=== PATIENT | female | born 1940 | race Caucasian/White ===

== ENCOUNTER 2017-03-02 13:44 | Emergency (ER) | payer MEDICARE, BC ==
[2017-03-02 14:12] VITALS: BP 130/67
--- NOTE | 2017-03-02 14:50 | UC ---
Lower Extremity/Ankle HPI - HPI Summary HPI Summary: 76 YEAR OLD FEMALE PRESENTS WITH COMPLAINS OF SEVERE RIGHT LOWER EXTREMITY SWELLING/ERYTHEMA. SHE HAS A HISTORY OF DVT'S AND I WILL SEND HER TO THE ER. - History of Current Complaint Chief Complaint: UCLowerExtremity Stated Complaint: LEG COMPLAINT Time Seen by Provider: 03/02/17 14:47 - Allergies/Home Medications Allergies/Adverse Reactions: Allergies Allergy/AdvReac Type Severity Reaction Status Date / Time Benzocaine Allergy Rash Verified 03/02/17 15:44 Sulfa Drugs Allergy Rash Verified 03/02/17 15:44 "EYE DROP" FOR GLAUCOMA AdvReac BURNING Uncoded 03/02/17 15:44 PAIN PMH/Surg Hx/FS Hx/Imm Hx Previously Healthy: Yes - Surgical History Surgical History: Yes Surgery Procedure, Year, and Place: TUBAL LIGATION-1971. APPENDECTOMY-1976. PARTIAL HYSTERECTOMY- 1976. [facility]. 2006 2 LASIK SURGERIES FOR G[facility]UCOMA [facility]. 2 LASER SURGERY FOR GLAUCOMA 2007 [facility]. RIGHT TKR-2007 [facility]. PARTIAL LEFT TKR 2010 [facility]. BILAT CATARACT - 2010 [facility]. THYROIDECTOMY- 2010 [facility]. VARICOSE VEIN SURGERY RIGHT. 09/09 RIGHT TRABECULECTOMY [facility]. RIGHT ROTATOR CUFF 2012 [facility] [place] - Social History Alcohol Use: Rare Substance Use Type: None Smoking Status (MU): Never Smoked Tobacco Type: Cigarettes Length of Time of Smoking/Using Tobacco: 5 YRS Have You Smoked in the Last Year: No When Did the Patient Quit Smoking/Using Tobacco: 40 YRS AGO - Immunization History Most Recent Influenza Vaccination: unk Most Recent Tetanus Shot: pt unsure Most Recent Pneumonia Vaccination: 2009 Review of Systems Constitutional: Negative Skin: Other - RIGHT LOWER EXTREMITY SWELLING/ERYTHEMA/PAIN Eyes: Negative ENT: Negative Respiratory: Negative Cardiovascular: Negative Gastrointestinal: Negative Genitourinary: Negative Motor: Negative Neurovascular: Negative Musculoskeletal: Negative Neurological: Negative Psychological: Negative All Other Systems Reviewed And Are Negative: Yes Physical Exam Triage Information Reviewed: Yes Vital Signs: Initial Vital Signs Temp 37.3 C 03/02/17 14:08 Pulse 68 03/02/17 14:08 Resp 20 03/02/17 14:08 BP 130/67 03/02/17 14:08 Pulse Ox 98 03/02/17 14:08 Eye Exam: Normal ENT Exam: Normal Dental Exam: Normal Neck exam: Normal Neck: Positive: 1 Respiratory Exam: Normal Cardiovascular Exam: Normal Abdominal Exam: Normal Musculoskeletal: Positive: Other: - RIGHT LOWER EXTREMITY PAIN/SWELLING/ERYTHEMA Neurological Exam: Normal Psychological Exam: Normal Skin Exam: Normal Lower Extremity Course/Dx - Differential Dx/Diagnosis Differential Diagnosis/HQI/PQRI: DVT Provider Diagnoses: RIGHT LOWER EXTREMITY SWELLING/ERYTHEMA/PAIN Discharge - Discharge Plan Condition: Stable Disposition: HOME Patient Education Materials: Leg Pain (ED), Deep Venous Thrombosis (ED), Leg Edema (ED) Referrals: Ministerio Quinones MD [Primary Care Provider] - Additional Instructions: PLEASE GO TO ER TO RULE OUT DVT.
== END 2017-03-02 15:00 | disposition home or self-care (01) ==
LOC: UCEAST 13:44
DX: M79.89 Other specified soft tissue disorders (principal); M79.604 Pain in right leg; Z88.4 Allergy status to anesthetic agent; Z88.2 Allergy status to sulfonamides; Z87.891 Personal history of nicotine dependence
CPT/HCPCS: 99211; G0463

== ENCOUNTER 2017-03-02 15:28 | Emergency (ER) | payer MEDICARE, BC ==
[2017-03-02] MEDS ORDERED: Acetaminophen TAB* 325 MG PO ONE (17:09)
[2017-03-02] MEDS ORDERED: Clindamycin 600 MG IVPREMIX(* 600 MG/50 ML SDV IV ONE (17:10)
[2017-03-02] MEDS ORDERED: NS 0.9% 1000 ML* 1,000 ML IV SCH (17:15)
[2017-03-02 17:46] LABS: Urine Bilirubin Negative (Negative); Urine Glucose Negative (Negative); Urine Nitrite Negative (Negative)
--- NOTE | 2017-03-02 17:55 | RAD ---
HISTORY: Right leg swelling TECHNIQUE: Multiple transverse and longitudinal ultrasound images were obtained of the veins of the right lower extremity using grayscale, color Doppler, and spectral Doppler imaging with and without compression and with augmentation. FINDINGS: VEINS: The common femoral vein, deep femoral vein, femoral vein and popliteal vein are compressible throughout their course, with normal flow on color Doppler imaging and normal response to augmentation on spectral Doppler imaging. SOFT TISSUES: Grossly normal. No large popliteal fossa cyst was identified. IMPRESSION: No sonographic evidence of deep vein thrombosis.
[2017-03-02 18:22] LABS: Albumin 3.9 g/dL (3.2-5.2); BUN/Creatinine Ratio 15.3 (8-20); C Reactive Protein 22.38 mg/L (< 5.00); Calcium 10.4 mg/dL (8.6-10.3); EGFR Non-African American 44.3 (>60); Globulin 3.3 g/dL (2-4); Potassium 3.7 mmol/L (3.5-5.0); Total Bilirubin 0.4 mg/dL (0.2-1.0); Total Protein 7.2 g/dL (6.4-8.9)
[2017-03-02 19:21] LABS: Hematocrit 37 % (35-47); Hemoglobin 11.8 g/dl (12.0-16.0); Mean Corpuscular HGB Conc 32 g/dl (31-36); Mean Corpuscular Hemoglobin 31 pg (27-31); Mean Corpuscular Volume 97 fL (80-97); Mean Platelet Volume 9 um3 (7.4-10.4); Red Blood Count 3.82 10^6/ul (4.0-5.4); Red Cell Distribution Width 15 % (10.5-15)
[2017-03-02] MEDS ORDERED: Clindamycin CAP* 150 MG PO ONE (21:14)
--- NOTE | 2017-03-02 21:18 | ED ---
Hubert Galarza Benjamin, scribed for Carlitos Miller MD on 03/02/17 at 1721 . Skin Complaint - HPI Summary HPI Summary: 76yo female comes from with swollen, red right lower leg. Pt also reports pain in her calf. Pt has hx of bilateral knee repair, and some knee pain ever since, but denies any acute abnormal knee pain today. Pt is also on 10-day course of Keflex BID for a recent boil in her vaginal area. Last dose is tonight. Pt reports some chills but denies fever, SOB, CP, or abdominal pain. - History of Current Complaint Chief Complaint: EDExtremityLower Time Seen by Provider: 03/02/17 16:49 Stated Complaint: ANKLES SWELLING-[facility] Hx Obtained From: Patient Onset/Duration: Atraumatic, Still Present Timing: Constant Onset Severity: Moderate Current Severity: Moderate Pain Intensity: 5 Pain Scale Used: 0-10 Numeric Skin Location: Leg - RLE Character: Swelling, Pain, Redness Aggravating Symptom(s): Nothing Alleviating Symptom(s): Nothing Associated Signs & Symptoms: Chills - Allergy/Home Medications Allergies/Adverse Reactions: Allergies Allergy/AdvReac Type Severity Reaction Status Date / Time Benzocaine Allergy Rash Verified 03/02/17 15:44 Sulfa Drugs Allergy Rash Verified 03/02/17 15:44 "EYE DROP" FOR GLAUCOMA AdvReac BURNING Uncoded 03/02/17 15:44 PAIN PMH/Surg Hx/FS Hx/Imm Hx Endocrine/Hematology History: Reports: Hx Thyroid Disease - HYPO Denies: Hx Diabetes Cardiovascular History: Reports: Other Cardiovascular Problems/Disorders - HX DVT APPROX 20 YRS Denies: Hx Hypertension Comment Only: Hx Peripheral Vascular Disease - VARICOSE VEIN SURGERY IN THE PAST Respiratory History: Reports: Hx Asthma - HX OF Denies: Hx Chronic Obstructive Pulmonary Disease (COPD) GI History: Reports: Hx Gall Bladder Disease - pt is unsure- "maybe", Other GI Disorders - CONSTIPATION/DIARRHEA Denies: Hx Ulcer History: Reports: Other Problems/Disorders - BLADDER LESIONS Musculoskeletal History: Reports: Hx Arthritis, Other Musculoskeletal History - POSSIBLE DDD Sensory History: Reports: Hx Cataracts, Hx Contacts or Glasses - GLASSES, Hx Glaucoma - BILAT Denies: Hx Hearing Aid Opthamlomology History: Reports: Hx Cataracts, Hx Contacts or Glasses - GLASSES , Hx Glaucoma - BILAT Neurological History: Reports: Hx Headaches, Other Neuro Impairments/Disorders - falls, occassional slurred speech Psychiatric History: Reports: Hx Anxiety, Hx Depression - BIPOLAR - Cancer History Cancer Type, Location and Year: had breast biopsy - took tamoxifen for 5 years r /t this benign issue Hx Chemotherapy: No Hx Radiation Therapy: No - Surgical History Surgery Procedure, Year, and Place: TUBAL LIGATION-1971. APPENDECTOMY-1976. PARTIAL HYSTERECTOMY- 1976. [facility]. 2005 2 LASIK SURGERIES FOR GLAUCOMA [facility]. 2 LASER SURGERY FOR GLAUCOMA 2007 [facility]. RIGHT TKR-2007 [facility]. PARTIAL LEFT TKR 2010 [facility]. BILAT CATARACT - 2010 [facility]. THYROIDECTOMY- 2010 [facility]. VARICOSE VEIN SURGERY RIGHT. 09/09 RIGHT TRABECULECTOMY [facility]. RIGHT ROTATOR CUFF 2012 [facility] [place] Hx Anesthesia Reactions: No Infectious Disease History: No Infectious Disease History: Denies: Hx Clostridium Difficile, Hx Hepatitis, Hx Human Immunodeficiency Virus (HIV), Traveled Outside the US in Last 30 Days - Family History Known Family History: Positive: Other - breast CA - Social History Occupation: Retired Lives: Alone Alcohol Use: Rare Substance Use Type: Reports: None Smoking Status (MU): Never Smoked Tobacco Type: Cigarettes Length of Time of Smoking/Using Tobacco: 5 YRS Have You Smoked in the Last Year: No Review of Systems Positive: Chills Eyes: Negative ENT: Negative Cardiovascular: Negative Respiratory: Negative Gastrointestinal: Negative Genitourinary: Negative Positive: Myalgia - RLE, Edema - RKE Positive: Other - redness @RLE Neurological: Negative Psychological: Normal All Other Systems Reviewed And Are Negative: Yes Physical Exam Triage Information Reviewed: Yes Vital Signs On Initial Exam: Initial Vitals Temp Pulse Resp BP Pulse Ox 98.3 F 74 16 153/55 99 03/02/17 15:44 03/02/17 15:44 03/02/17 15:44 03/02/17 15:44 03/02/17 15:44 Vital Signs Reviewed: Yes Appearance: Positive: Well-Appearing, No Pain Distress, Well-Nourished Skin: Positive: Warm, Skin Color Reflects Adequate Perfusion, Dry, Erythema @ - RLE, Up to mid-calf, circumferential, Other - right knee: not erythematous, not hot to touch Head/Face: Positive: Normal Head/Face Inspection Eyes: Positive: EOMI, SIRENA, Conjunctiva Clear ENT: Positive: Normal ENT inspection, Hearing grossly normal Neck: Positive: Supple, Nontender Respiratory/Lung Sounds: Positive: Clear to Auscultation, Breath Sounds Present Cardiovascular: Positive: RRR Abdomen Description: Positive: Nontender, Soft Bowel Sounds: Positive: Present Musculoskeletal: Positive: Normal, Strength/ROM Intact - Knee ROM intact, Edema Right - Right lower leg. Negative: Edema Left Neurological: Positive: Sensory/Motor Intact, Alert, Oriented to Person Place, Time, CN Intact II-III Psychiatric: Positive: Affect/Mood Appropriate - [place] Coma Scale Coma Scale Total: 15 Diagnostics - Vital Signs Vital Signs Temp Pulse Resp BP Pulse Ox 03/02/17 16:20 97.8 F 76 18 135/57 96 03/02/17 15:44 98.3 F 74 16 153/55 99 - Laboratory Lab Results: Lab Results 03/02/17 03/02/17 03/02/17 Range/Units 17:35 18:00 18:00 WBC (3.5-10.8) 10^3/ul RBC (4.0-5.4) 10^6/ul Hgb (12.0-16.0) g/dl Hct (35-47) % MCV (80-97) fL MCH (27-31) pg MCHC (31-36) g/dl RDW (10.5-15) % Plt Count (150-450) 10^3/ul MPV (7.4-10.4) um3 Neut % (Auto) (38-83) % Lymph % (Auto) (25-47) % Z[place]ata % (Auto) (1-9) % Eos % (Auto) (0-6) % Baso % (Auto) (0-2) % Absolute Neuts (auto) (1.5-7.7) 10^3/ul Absolute Lymphs (auto) (1.0-4.8) 10^3/ul Absolute Monos (auto) (0-0.8) 10^3/ul Absolute Eos (auto) (0-0.6) 10^3/ul Absolute Basos (auto) (0-0.2) 10^3/ul Absolute Nucleated RBC 10^3/ul Nucleated RBC % INR (Anticoag Therapy) 0.92 (0.89-1.11) APTT 19.1 L (26.0-36.3) seconds Sodium 141 (133-145) mmol/L Potassium 3.7 (3.5-5.0) mmol/L Chloride 108 (101-111) mmol/L Carbon Dioxide 28 (22-32) mmol/L Anion Gap 5 (2-11) mmol/L BUN 18 (6-24) mg/dL Creatinine 1.18 H (0.51-0.95) mg/dL Est GFR ( Amer) 57.0 (>60) Est GFR (Non-Af Amer) 44.3 (>60) BUN/Creatinine Ratio 15.3 (8-20) Glucose 95 (70-100) mg/dL Lactic Acid (0.5-2.0) mmol/L Calcium 10.4 H (8.6-10.3) mg/dL Total Bilirubin 0.40 (0.2-1.0) mg/dL AST 18 (13-39) U/L ALT 18 (7-52) U/L Alkaline Phosphatase 60 (34-104) U/L C-Reactive Protein 22.38 H (< 5.00) mg/L B-Natriuretic Peptide ( - 100) pg/mL Total Protein 7.2 (6.4-8.9) g/dL Albumin 3.9 (3.2-5.2) g/dL Globulin 3.3 (2-4) g/dL Albumin/Globulin Ratio 1.2 (1-3) Urine Color Straw Urine Appearance Clear Urine pH 7.0 (5-9) Ur Specific [place] 1.005 L (1.010-1.030) Urine Protein Negative (Negative) Urine Ketones Negative (Negative) Urine Blood Negative (Negative) Urine Nitrate Negative (Negative) Urine Bilirubin Negative (Negative) Urine Urobilinogen Negative (Negative) Ur Leukocyte Esterase Negative (Negative) Urine Glucose Negative (Negative) Urine Ascorbic Acid * H (Negative) 03/02/17 03/02/17 03/02/17 Range/Units 19:11 19:11 19:11 WBC 8.0 (3.5-10.8) 10^3/ul RBC 3.82 L (4.0-5.4) 10^6/ul Hgb 11.8 L (12.0-16.0) g/dl Hct 37 (35-47) % MCV 97 (80-97) fL MCH 31 (27-31) pg MCHC 32 (31-36) g/dl RDW 15 (10.5-15) % Plt Count 233 (150-450) 10^3/ul MPV 9 (7.4-10.4) um3 Neut % (Auto) 65.8 (38-83) % Lymph % (Auto) 19.6 L (25-47) % Zapata % (Auto) 10.0 H (1-9) % Eos % (Auto) 3.7 (0-6) % Baso % (Auto) 0.9 (0-2) % Absolute Neuts (auto) 5.3 (1.5-7.7) 10^3/ul Absolute Lymphs (auto) 1.6 (1.0-4.8) 10^3/ul Absolute Monos (auto) 0.8 (0-0.8) 10^3/ul Absolute Eos (auto) 0.3 (0-0.6) 10^3/ul Absolute Basos (auto) 0.1 (0-0.2) 10^3/ul Absolute Nucleated RBC 0.01 10^3/ul Nucleated RBC % 0.1 INR (Anticoag Therapy) (0.89-1.11) APTT (26.0-36.3) seconds Sodium (133-145) mmol/L Potassium (3.5-5.0) mmol/L Chloride (101-111) mmol/L Carbon Dioxide (22-32) mmol/L Anion Gap (2-11) mmol/L BUN (6-24) mg/dL Creatinine (0.51-0.95) mg/dL Est GFR ( Amer) (>60) Est GFR (Non-Af Amer) (>60) BUN/Creatinine Ratio (8-20) Glucose (70-100) mg/dL Lactic Acid 1.1 (0.5-2.0) mmol/L Calcium (8.6-10.3) mg/dL Total Bilirubin (0.2-1.0) mg/dL AST (13-39) U/L ALT (7-52) U/L Alkaline Phosphatase (34-104) U/L C-Reactive Protein (< 5.00) mg/L B-Natriuretic Peptide 55 ( - 100) pg/mL Total Protein (6.4-8.9) g/dL Albumin (3.2-5.2) g/dL Globulin (2-4) g/dL Albumin/Globulin Ratio (1-3) Urine Color Urine Appearance Urine pH (5-9) Ur Specific [place] (1.010-1.030) Urine Protein (Negative) Urine Ketones (Negative) Urine Blood (Negative) Urine Nitrate (Negative) Urine Bilirubin (Negative) Urine Urobilinogen (Negative) Ur Leukocyte Esterase (Negative) Urine Glucose (Negative) Urine Ascorbic Acid (Negative) Result Diagrams: 03/02/17 19:11 03/02/17 18:00 Lab Statement: Any lab studies that have been ordered have been reviewed, and results considered in the medical decision making process. - Ultrasound No standard instances Ultrasound Interpretation: No Acute Changes Ultrasound Interpretation Completed By: Radiologist - Doppler: no DVT Course/Dx - Course Course Of Treatment: Reviewed pts medication and allergy lists. DISCUSSED RESULTS WITH PATIENT/. PATIENT WAS ON KEFLEX 500MG PO BID. DISCUSSED ADMISSION VERSES HOME TREATMENT WITH CLINDAMYCIN 300MG PO QID AND PMD F/U. PATIENT PREFERS HOME TREATMENT, WILL RETURN IF WORSE. - Diagnoses Provider Diagnoses: Cellulitis of leg, right Discharge - Discharge Plan Condition: Stable Disposition: HOME Prescriptions: Clindamycin Cap(NF) [Clindamycin Cap 300 mg Cap(NF)] 300 mg PO Q6H #38 cap Patient Education Materials: Cellulitis (ED) Referrals: Ministerio Quinones MD [Primary Care Provider] - Additional Instructions: FOLLOW UP WITH YOUR DOCTOR. RETURN TO THE EMERGENCY DEPARTMENT FOR ANY WORSENING OF YOUR CONDITION; FEVER, YOU FEEL ILL, SPREAD OF INFECTION OR QUESTIONS OR CONCERNS. The documentation as recorded by the [facility] accurately reflects the service I personally performed and the decisions made by me, Carlitos Miller MD.
[2017-03-02 21:48] VITALS: BP 118/55
== END 2017-03-02 21:54 | disposition home or self-care (01) ==
LOC: ED 15:28
DX: L03.115 Cellulitis of right lower limb (principal); M79.89 Other specified soft tissue disorders; R68.83 Chills (without fever)
CPT/HCPCS: 36415; 80053; 81003; 83605; 83880; 85025; 85610; 85730; 86140; 87040; 96374; 99283; A9270-GY

== ENCOUNTER 2018-03-03 09:40 | Day surgery (SDC) | payer MEDICARE, BC ==
[~2018-03-03 09:40] MED LIST: Buffered Lidocaine 0.9% SYRIN* 5 ML/SYR SYRINGE INTRADERM ONE; Dexamethasone IV* 4 MG/ML 1 ML (4 MG) IV SLOW PU ONE; Famotidine IV* 10 MG/ML 2 ML (20 mg) IV ONE
[2018-03-03] MEDS ORDERED: Famotidine IV* 10 MG/ML 2 ML (20 mg) ONE (10:00)
[2018-03-03] MEDS ORDERED: Dexamethasone IV* 4 MG/ML 1 ML (4 MG) ONE (10:00)
[2018-03-03] MEDS ORDERED: ceFAZolin 2 GM PREMIX (*) 2 GM/50 ML BAG IVPB ONE (10:00)
[2018-03-03] MEDS ORDERED: HYDROcodone/ACETAMIN 5-325 MG* 1 TAB PO PRN (12:29)
[2018-03-03] MEDS ORDERED: oxyCODONE TAB* 5 MG TAB PO PRN (12:29)
[2018-03-03] MEDS ORDERED: fentaNYL* 50 MCG/ML 2 ML VIAL (100 MCG VIAL) IV PRN (12:29)
[2018-03-03] MEDS ORDERED: DiMENhydriNATE IV* 50 MG/ML VIAL IV PUSH PRN (12:29)
[2018-03-03] MEDS ORDERED: Acetaminophen TAB* 325 MG PO PRN (12:29)
[2018-03-03] MEDS ORDERED: Naloxone* 0.4 MG/ML 1 ML VIAL IV PRN (12:29)
[2018-03-03] MEDS ORDERED: fentaNYL* 50 MCG/ML 2 ML VIAL (100 MCG VIAL) ONE (12:42)
[2018-03-03] MEDS ORDERED: Bupivacaine 0.5% PF 10 ML VIAL INJ ONE ×2 (12:42→13:25)
[2018-03-03] MEDS ORDERED: Midazolam* 1 MG/ML 2 ML VIAL (2 MG) ONE (12:42)
[2018-03-03] MEDS ORDERED: Propofol* 10 MG/ML 20 ML BTL IV PUSH ONE (12:43)
[2018-03-03] MEDS ORDERED: Lidocaine 2% PF * 5 ML VIAL ONE (12:43)
[2018-03-03 14:24] VITALS: BP 139/60
== END 2018-03-03 14:50 | disposition home or self-care (01) ==
LOC: OR 09:40
PROVIDERS: ATTEND Plastic Surgery
DX: D17.21 Benign lipomatous neoplasm of skin and subcutaneous tissue of right arm (principal); J45.909 Unspecified asthma, uncomplicated; E03.9 Hypothyroidism, unspecified; F31.9 Bipolar disorder, unspecified; Z86.718 Personal history of other venous thrombosis and embolism; Z87.891 Personal history of nicotine dependence
CPT/HCPCS: 88304; J0690; J1100; J2250; J2704; J3010

== ENCOUNTER 2019-03-30 21:00 | Emergency (ER) | payer MEDICARE, BC ==
--- NOTE | 2019-03-31 01:33 | ED ---
Adult Trauma - HPI Summary HPI Summary: Patient complains of mechanical fall tonight with subsequent head injury to posterior head and LEYVA when her head hit the concrete floor. Denies LOC, vision change, N/V, altered mental status, instability, any other pain, injury or symptoms. No anti-coag. - History of Current Complaint Chief Complaint: EDHeadInjury Stated Complaint: FALL AND HIT HEAD PER PT SIGNIFICANT OTHER Time Seen by Provider: 03/31/19 00:32 Hx Obtained From: Patient, Family/Housecleaner Mechanism of Injury: Fall Ambulatory at the Scene: Yes Loss of Consciousness: no loss of consciousness Onset of Pain: Immediate Onset Severity: Moderate Current Severity: Moderate Pain Intensity: 6 Pain Scale Used: 0-10 Numeric Location: Head Character: Dull Aggravating Factor(s): Nothing Alleviating Factor(s): Nothing Associated Signs & Symptoms: Positive: Negative - Allergy/Home Medications Allergies/Adverse Reactions: Allergies Allergy/AdvReac Type Severity Reaction Status Date / Time benzocaine Allergy Rash Verified 03/03/18 10:05 Sulfa (Sulfonamide Allergy Rash Verified 03/03/18 10:05 Antibiotics) "EYE DROP" FOR GLAUCOMA AdvReac BURNING Uncoded 03/03/18 10:05 PAIN Home Medications: Home Medications Mirabegron (NF) [Myrbetriq (NF)] 50 mg PO DAILY 03/31/19 [History Confirmed 01/11] PMH/Surg Hx/FS Hx/Imm Hx Endocrine/Hematology History: Reports: Hx Thyroid Disease - HYPO - HX OF THYROID NODULE EXCISION Denies: Hx Diabetes Cardiovascular History: Reports: Hx Peripheral Vascular Disease - VARICOSE VEIN SURGERY IN THE PAST, Other Cardiovascular Problems/Disorders - HX DVT APPROX 20 YRS Denies: Hx Hypertension Respiratory History: Reports: Hx Asthma - HX OF - NO INHALERS, Other Respiratory Problems/Disorders - OCCASIONAL WHEEZING WITH EXERTION Denies: Hx Chronic Obstructive Pulmonary Disease (COPD) GI History: Reports: Hx Gall Bladder Disease - pt is unsure- "maybe", Other GI Disorders - OCCASIONAL CONSTIPATION/DIARRHEA - RELATES TO DIET Denies: Hx Ulcer History: Reports: Other Problems/Disorders - HX OF BLADDER LESIONS Musculoskeletal History: Reports: Hx Arthritis - BILATERAL KNEE REPLACEMENTS, Other Musculoskeletal History - POSSIBLE DDD Sensory History: Reports: Hx Cataracts, Hx Contacts or Glasses - GLASSES, Hx Glaucoma Denies: Hx Hearing Aid Opthamlomology History: Reports: Hx Cataracts, Hx Contacts or Glasses - GLASSES , Hx Glaucoma Neurological History: Reports: Hx Headaches, Other Neuro Impairments/Disorders - falls, occassional slurred speech Psychiatric History: Reports: Hx Anxiety, Hx Depression - BIPOLAR - CURRENTLY TREATED WITH LITHIUM - Cancer History Cancer Type, Location and Year: had breast biopsy - took tamoxifen for 5 years r /t this benign issue Hx Chemotherapy: No Hx Radiation Therapy: No - Surgical History Surgery Procedure, Year, and Place: TUBAL LIGATION-1971. APPENDECTOMY-1976. PARTIAL HYSTERECTOMY- 1976. [facility]. 2005 2 LASIK SURGERIES FOR G[facility]COMA [facility]. REMOVAL OF THYROID NODULE, [facility]. CATARACT EXTRACTION BILATERAL EYES WITH IOL IMPLANTS, [facility]. VARICOSE VEINS SURGERY - 20 YEARS AGO, [facility]. BILATERAL KNEE REPLACEMENTS, [facility]. 2 LASER SURGERY FOR GLAUCOMA 2007 [facility]. RIGHT TKR-2007 [facility]. PARTIAL LEFT TKR 2010 [facility]. BILAT CATARACT - 2010 [facility]. THYROIDECTOMY - 2010 [facility]. VARICOSE VEIN SURGERY RIGHT. 09/09 RIGHT TRABECULECTOMY [facility]. RIGHT ROTATOR CUFF 2012 [facility] [place]. RECENT EXCISION OF CORN RIGHT FOOT Hx Anesthesia Reactions: Yes - VOMITING AFTER FIRST KNEE Infectious Disease History: No Infectious Disease History: Denies: Hx Clostridium Difficile, Hx Hepatitis, Hx Human Immunodeficiency Virus (HIV), Traveled Outside the [place] in Last 30 Days - Family History Known Family History: Positive: Other - breast [place] - Social History Alcohol Use: Occasionally Substance Use Type: Reports: None Smoking Status (MU): Former Smoker Type: Cigarettes Amount Used/How Often: 1 PPD FOR ABOUT 4 YEARS Length of Time of Smoking/Using Tobacco: 5 YRS Have You Smoked in the Last Year: No Review of Systems Constitutional: Negative Eyes: Negative ENT: Negative Cardiovascular: Negative Respiratory: Negative Gastrointestinal: Negative Genitourinary: Negative Musculoskeletal: Negative Skin: Negative Positive: Headache Psychological: Normal All Other Systems Reviewed And Are Negative: Yes Physical Exam - Summary Physical Exam Summary: Neuro exam normal. No trauma noted to mouth, face, head. Full range of motion of jaw or neck. No pain with Palpation of neck, spine, back, chest, abdomen. Patient moving all 4 extremities freely. Triage Information Reviewed: Yes Vital Signs On Initial Exam: Initial Vitals Temp Pulse Resp BP Pulse Ox 99.3 F 69 20 160/58 98 03/30/19 21:05 03/30/19 21:05 03/30/19 21:05 03/30/19 21:05 03/30/19 21:05 Vital Signs Reviewed: Yes Appearance: Positive: Well-Appearing Skin: Positive: Warm Head/Face: Positive: Normal Head/Face Inspection Eyes: Positive: Normal ENT: Positive: Normal ENT inspection Dental: Negative: Dental Fracture @, Bleeding Neck: Positive: Supple Respiratory/Lung Sounds: Positive: Clear to Auscultation Cardiovascular: Positive: Normal Abdomen Description: Positive: Nontender Musculoskeletal: Positive: Normal Neurological: Positive: Normal Psychiatric: Positive: Normal AVPU Assessment: Alert - [place] Coma Scale Best Eye Response: 4 - Spontaneous Best Motor Response: 6 - Obeys Commands Best Verbal Response: 5 - Oriented Coma Scale Total: 15 Diagnostics - Vital Signs Vital Signs Temp Pulse Resp BP Pulse Ox 03/30/19 23:01 98.6 F 136 20 178/71 93 03/30/19 21:05 99.3 F 69 20 160/58 98 - Laboratory Lab Statement: Any lab studies that have been ordered have been reviewed, and results considered in the medical decision making process. Adult Trauma Course/Dx - Course Course Of Treatment: Patient complains of mechanical fall tonight with subsequent head injury to posterior head and LEYVA when her head hit the concrete floor. Denies LOC, vision change, N/V, altered mental status, instability, any other pain, injury or symptoms. No anti-coag. Vital signs within normal limits. CT brain negative for acute process. - Diagnoses Provider Diagnoses: Fall, Head injury Discharge ED - Sign-Out/Discharge Documenting (check all that apply): Patient Departure Patient Received Moderate/Deep Sedation with Procedure: No - Discharge Plan Condition: Stable Disposition: HOME Prescriptions: Cephalexin CAP* [Keflex CAP*] 500 mg PO TID 7 Days #21 cap Patient Education Materials: Head Injury (ED) Referrals: Ministerio Quinones MD [Primary Care Provider] - Additional Instructions: Return to the ED for any new or worsening symptoms. - Billing Disposition and Condition Condition: STABLE Disposition: Home
[2019-03-31] MEDS ORDERED: Cephalexin CAP* 500 MG ONE (02:19)
[2019-03-31] MEDS ORDERED: Cephalexin CAP* 500 MG PO ONE (02:20)
[2019-03-31 02:26] VITALS: BP 131/67
== END 2019-03-31 02:24 | disposition home or self-care (01) ==
LOC: ED 21:00
DX: S09.90XA Unspecified injury of head, initial encounter (principal); W19.XXXA Unspecified fall, initial encounter; Y92.9 Unspecified place or not applicable; G31.9 Degenerative disease of nervous system, unspecified; F31.9 Bipolar disorder, unspecified; Z88.4 Allergy status to anesthetic agent; Z88.2 Allergy status to sulfonamides; Z88.8 Allergy status to other drugs, medicaments and biological substances; Z87.891 Personal history of nicotine dependence
CPT/HCPCS: 70450; 99283; A9270-GY

== ENCOUNTER 2019-04-16 11:28 | Inpatient (IN) | payer MEDICARE, BC ==
--- OUTSIDE RECORDS SUMMARY | 2019-04-16 11:54 | XMS REPORT | Continuity of Care Document ---
:1940 External Reference #:[id number] Author Name KASSIE Gracia Address [address] [place] [address] Care Team Providers Name Role Phone Ministerio Quinones - Family Medicine Care Team Information Staff Nurse Midwife [phone] [facility] - Physical Care Team Information Staff Nurse Midwife Therapist [facility] Care Team Information Staff Nurse Midwife Urology - Urology [facility] Urology Care Team Information Staff Nurse Midwife [phone] Problems Active Problems Provider Date Benign essential hypertension Ministerio Quinones M.D. Onset: 11/23/2005 Asthma without status asthmaticus Ministerio Quinones M.D. Onset: 11/23/2005 Hyperlipidemia Ministerio Quinones M.D. Onset: 11/23/2005 Edema Ministerio Quinones M.D. Onset: 11/23/2005 Bipolar disorder Ministerio Quinones M.D. Onset: 11/23/2005 Allergic condition Ministerio Quinones M.D. Onset: 11/23/2005 Arthropathy Ministerio Quinones M.D. Onset: 05/26/2006 Hypothyroidism Ministerio Quinones M.D. Onset: 12/03/2009 Hypercalcemia Ministerio Quinones M.D. Onset: 04/13/2011 Contusion of elbow Ministerio Quinones M.D. Onset: 04/13/2011 Contusion of knee Ministerio Quinones M.D. Onset: 04/13/2011 Malaise and fatigue Ministerio Quinones M.D. Onset: 07/13/2011 Disorder of shoulder Ministerio Quinones M.D. Onset: 07/05/2012 Epidermoid cyst Ministerio Quinones M.D. Onset: 03/06/2013 Female stress incontinence Ministerio Quinones M.D. Onset: 05/08/2013 Open wound of scalp with complication Ministerio Quinones M.D. Onset: 03/09/2014 Increased frequency of urination Ministerio Quinones M.D. Onset: 08/03/2014 Glaucoma associated with ocular disorder Ministerio Quinones M.D. Onset: 2014 Urinary tract infectious disease Ministerio Quinones M.D. Onset: 12/03/2014 Muscle weakness Ministerio Quinones M.D. Onset: 12/03/2014 Bipolar I disorder Ministerio Quinones M.D. Onset: 06/25/2015 Arthralgia of the pelvic region and thigh Ministerio Quinones M.D. Onset: 2014 Allergic rhinitis Ministerio Quinones M.D. Onset: 11/08/2015 Impacted cerumen Ministerio Quinones M.D. Onset: 05/04/2016 Urinary incontinence Ministerio Quinones M.D. Onset: 11/02/2016 Slow transit constipation Ministerio Quinones M.D. Onset: 11/02/2016 Contact dermatitis Ministerio Quinones M.D. Onset: 11/02/2016 Cellulitis of right lower limb Ministerio Quinones M.D. Onset: 03/09/2017 Localized superficial swelling of skin Ministerio Quinones M.D. Onset: 05/07/2017 Pain in limb Ministerio Quinones M.D. Onset: 11/08/2017 Mixed hyperlipidemia Ministerio Quinones M.D. Onset: 05/16/2018 Elevated blood-pressure reading without Ministerio Quinones M.D. Onset: 2018 diagnosis of hypertension Social History Type Date Description Comments Sex Unknown Tobacco Use Start: Unknown Nonsmoker Smoking Status Reviewed: 02/02/18 Nonsmoker ETOH Use Occasional Tobacco Use Start: Unknown End: Unknown Patient is a former smoker Allergies, Adverse Reactions, Alerts Active Allergies Reaction Severity Comments Date Sulfa Drugs Benzocaine Hay Fever 03/09/2017 Medications Active Medications SIG Qnty Indications Ordering Date Provider Amoxicillin 4 caps 1 hour 4caps Ministerio Quinones, 05/27/2018 500mg prior to M.D. Capsules procedure Fluocinonide apply to affected 60cc L30.8 Ministerio Quinones, 11/08/2017 0.05% areas of the M.D. Solution scalp every day as needed Levothyroxine Sodium Take One Tablet 90tabs Ministerio Quinones, 01/22/2012 By Mouth Every M.D. 88mcg Tablets Day [place] Carbonate ER Take One Tablet 180tabs Ministerio Quinones, 03/31/2011 By Mouth Twice A M.D. 450mg Tablets ER Day Fluticasone spray two sprays 16gm Ministerio Quinones, Propionate in each nostril M.D. 50mcg/Act every day for Suspension allergies Solifenacin Succinate 1 by mouth every Unknown day 10mg Tablets Cephalexin take one by mouth Unknown 500mg three times daily Capsules until gone. Myrbetriq 1 by mouth qd Unknown 50mg Tablets ER 24HR History Medications Myrbetriq 1 daily for 30tabs R32 Ministerio Quinones, 03/17/2019 - 25mg Tablets overactive bladder M.D. 03/17/2019 ER 24HR Myrbetriq R32 Ministerio Quinones, 03/17/2019 - 50mg Tablets M.D. 04/04/2019 ER 24HR Ciprofloxacin HCL take one by mouth 20tabs Ministerio Quinones, 12/29/2018 - 500mg twice daily M.D. 03/17/2019 Tablets Loratadine-D 12HR 1 twice a day as 30tabs J30.2 Ministerio Quinones, 2018 - needed for M.D. 04/04/2019 5-120mg Tablets ER allergies 12HR Medications Administered in Office Medication SIG Qnty Indications Ordering Provider Date H1N1 MDCR vaccine any route Ministerio Quinones M.D. 08/24/2009 Injection Immunizations CPT Code Status Date Vaccine Lot # [id number] Given 05/16/2018 Pneumococcal Conjugate Vacc-13 [id number] 91456 Given 04/15/2017 Influenza Vac, Quadriv[place], [place] [address] Given 06/18/2014 High-Dose, Influenza Virus Vacccine-fluzone 65 and older [id number] Given 05/08/2013 High-Dose, Influenza Virus Vacccine-fluzone 65 [id number] and older 48735 Given 05/02/2012 Zostivax [id number] 60124 Given 05/02/2012 High-Dose, Influenza Virus Vacccine-fluzone 65 [id number] and older [id number] Given 04/13/2011 Split Influenza Medicare: Fluzone [id number] 35554 Given 04/28/2010 Pneumococcal Immunization [id number] 80625 Given 04/28/2010 Tdap Tetanus, W Pertussis [id number] 40786 Given 04/28/2010 DO Not Use Split Influenza Virus Vaccine [id number] 79931 Given 06/26/2009 DO Not Use Split Influenza Virus Vaccine [id number] 83870 Given 06/02/2007 DO Not Use Split Influenza Virus Vaccine 40063 Given 05/26/2006 DO Not Use Split Influenza Virus Vaccine [id number] 09654 Given 06/04/2005 DO Not Use Split Influenza Virus Vaccine Vital Signs Date Vital Result Comment 04/05/2019 10:06am BP Systolic 132 mmHg BP Diastolic 60 mmHg Heart Rate 66 /min Body Temperature 98.1 F Respiratory Rate 16 /min Height 60.25 inches 5'0.25" Weight 203.12 lb BMI (Body Mass Index) 39.3 kg/m2 03/17/2019 11:06am BP Systolic 150 mmHg BP Diastolic 80 mmHg Heart Rate 68 /min Body Temperature 98.1 F Respiratory Rate 20 /min Weight 204.00 lb Results Test Date Facility Test Result H/L Range Note Laboratory test 03/17/2019 Mario Espinoza([facility]) TSH 1.59 mIU/L 0.50-6.00 finding Free T4 1.16 ng/dL 0.75-1.54 Comprehensive Metabolic 03/17/2019 Mario Espinoza([facility]) Sodium 147 mEq/L 134-149 Prof Potassium 4.6 mEq/L 3.6-5.5 Chloride 112 mEq/L 94-112 Carbon Dioxide 27 mEq/L 21-32 Glucose 93 mg/dL 70-105 BUN 20 mg/dL 6-26 Creatinine 1.1 mg/dL 0.6-1.4 BUN/Creat Ratio 18.2 CALC 8.0-36.0 Calcium 10.7 mg/dL High 8.6-10.2 1 Total Protein 7.1 g/dL 6.4-8.3 Albumin 4.6 g/dL 3.8-5.5 Globulin 2.5 g/dL 2.0-4.8 A/G Ratio 1.8 CALC 0.6-2.3 Alk. Phosphatase 74 U/L 30-110 Alt (SGPT) 20 U/L 7-35 Ast (Sgot) 18 U/L 5-34 Total Bilirubin 0.5 mg/dL 0.2-1.3 GFR Non- 51 ml/min/1.73m^ Low >=60 GFR >60 ml/min/1.73m^ >=60 Ua - Micro (Fma) 12/26/2018 [facility] Appearance clear (607)- - Color yellow Glucose, Urine (Fma/CMC/CTX) neg Bilirubin neg Ketones neg SP Grav 1.010 Blood neg PH 7.0 Protein neg Urobil 0.2 Nitrite pos Leukocytes (Fma/CMC/Centrex) mod Hyaline - /Lpf Granular - /Lpf WBC (Fma,Centrex) 10-15 RBC 0-1 Mucus (Fma/CBC/Centrex) - /Lpf Epith rare /Lpf Bacteria 3+ /Hpf Amorphous (Fma/CMC/Centrex) - /Lpf Crystals, Fluid (Fma/CMC/CTX) - Urine Culture And Sensitivities 12/26/2018 [facility] Urine Culture SEE RESULT BELOW 2 1 consistent w/ previous results 2 SEE RESULT BELOW Name: VERONA JACKSON : [address]: Ministerio Quinones MD Acct: [id number] Unit: [id number] AGE: 78 Location: [facility] Re12/26/18 SEX: F Status: REG REF SPEC: [id number] NICOLE: 12/26/18 [facility] DR: Ministerio Quinones MD REQ: [id number] RECD: 12/26/18 STATUS: COMP _ SOURCE: URINE SPDESC: ORDERED: Urine Culture COMMENTS: 1 chaudhari urine top [id number] Urine Source: Random Procedure Result Reported Site Urine Culture Final 12/28/18- 0847 ML Organism 1 KLEBSIELLA PNEUMONIAE Parks Count >100,000 (Many) CFU/ML 1. KLEBSIELLA PNEUMONIAE M.I.C. RX --------- ------ Ampicillin >=32 R Cefazolin <=4 S Cefepime <=1 S Ceftriaxone <=1 S Ciprofloxacin <=0.25 S Gentamicin <=1 S Levofloxacin <=0.12 S Meropenem <=0.25 S Nitrofurantoin <=16 S Tetracycline <=1 S Pipercillin/Tazobactam <=4 S Trimethoprim/Sulfamethoxazole <=20 S Amoxicillin/Clavulanic Acid <=2 S Aztreonam <=1 S Contact the Microbiology Department for any additional antibiotic reporting. * [facility] - Main Lab . END OF REPORT DEPARTMENT OF PATHOLOGY, [address] [place] [address] Sourav Holloway M.D. Director [facility] # [id number] Procedures Date Code Description Status 06/08/2018 [id number] Mammogram Completed 05/17/2017 [id number] Mammogram Completed 05/14/2017 [id number] Mammogram Completed 05/14/2016 [id number] Mammogram Completed 05/13/2015 [id number] Mammogram Completed 2014 [id number] Mammogram Completed 05/17/2014 [id number] Mammogram Completed 05/03/2013 [id number] Mammogram Completed 07/22/2011 [id number] Colonoscopy Completed 04/27/2011 [id number] Mammogram Completed 04/23/2010 [id number] Mammogram Completed 04/15/2010 [id number] Mammogram Completed 04/18/2009 [id number] Mammogram Completed 03/15/2008 [id number] Mammogram Completed 02/24/2007 [id number] Mammogram Completed 02/23/2006 [id number] Mammogram Completed Medical Devices Description No Information Available Encounters Type Date Location Provider Dx Diagnosis Office Visit 03/17/2019 Main Office Ministerio Quinones, E03.8 Other specified 11:00a M.D. hypothyroidism F31.70 Bipolar disord, currently in remis, most recent episode unsp R03.0 Elevated blood-pressure reading, w/o diagnosis of htn J30.2 Other seasonal allergic rhinitis R32 Unspecified urinary incontinence Office Visit 11/14/2018 11:20a Main Office Ministerio Quinones, E03.8 Other specified M.D. hypothyroidism F31.70 Bipolar disord, currently in remis, most recent episode unsp R32 Unspecified urinary incontinence L30.8 Other specified dermatitis J30.2 Other seasonal allergic rhinitis R03.0 Elevated blood-pressure reading, w/o diagnosis of htn R60.0 Localized edema Assessments Date Code Description Provider 04/05/2019 R29.6 Repeated falls Ketty Gonzalez, [facility] 04/05/2019 N39.42 Incontinence without sensory awareness Ketty Gonzalez, [facility] 03/17/2019 E03.8 Other specified hypothyroidism Ministerio Quinones M.D. 03/17/2019 F31.70 Bipolar disorder, currently in remission, Ministerio Quinones M.D. most recent episod 03/17/2019 R03.0 Elevated blood-pressure reading, without Ministerio Quinones M.D. diagnosis of hypert 03/17/2019 J30.2 Other seasonal allergic tiara Quionnes M.D. 03/17/2019 R32 Unspecified urinary incontinence Ministerio Quinones M.D. 12/26/2018 R32 Unspecified urinary incontinence Ministerio Quinones M.D. 11/14/2018 E03.8 Other specified hypothyroidism Ministerio Quinones M.D. 11/14/2018 F31.70 Bipolar disorder, currently in remission, Ministerio Quinones M.D. most recent episod 11/14/2018 R32 Unspecified urinary incontinence Ministerio Quinones M.D. 11/14/2018 L30.8 Other specified dermatitis Ministerio Quinones M.D. 11/14/2018 J30.2 Other seasonal allergic rhinitis Ministerio Quinones M.D. 11/14/2018 R03.0 Elevated blood-pressure reading, without Ministerio Quinones M.D. diagnosis of hypert 11/14/2018 R60.0 Localized edema Ministerio Quinones M.D. Plan of Treatment Future Appointment(s):09/18/2019 10:00 am - Ministerio Quinones M.D. at Main Qyskir4304/05/2019 - Ketty Gonzalez, FNPR29.6 Repeated pmyxjF64.42 Incontinence without sensory awarenessAllComments:Medication Management Patient Understands medications he 's taking? Yes No Are there Barriers to Adherence? Yes No Has the patient been asked about herbal supplements and therapies, andOTC meds? Yes No As always, we strongly encourage a healthy diet and making physical activity a part of your every day life. If you have questions about how or where to start, please contact the office. Functional Status Description No Information Available Mental Status Description No Information Available Referrals Refer to Reason for Referral Status Appt Date [facility] Urology evaluate and tx Scheduled 12/22/2018 [address] [phone]
--- OUTSIDE RECORDS SUMMARY | 2019-04-16 11:54 | XMS REPORT | Continuity of Care Document ---
:1940 External Reference #:[id number] Author Name Antonio Pabon M.D. Address [address] [place] [address] Care Team Providers Name Role Phone Ministerio Quinones M.D. - Family Medicine Care Team Information Wall Steamer Kaden Downey M.D. - Urology Care Team Information Wall Steamer [phone] Problems Active Problems Provider Date Asthma Onset: Seasonal allergic rhinitis Onset: Dependent edema Onset: Arthritis Onset: Bipolar affective disorder, current episode Onset: depression Hypothyroidism Onset: Primary open angle glaucoma Antonio Pabon M.D. Onset: 01/29/2015 Severe / Advanced / End Stage Glaucoma Antonio Pabon M.D. Onset: 2014 Pseudophakia Antonio Pabon M.D. Onset: 01/29/2015 Vertigo Onset: Bilateral primary open angle glaucoma Antonio Pabon M.D. Onset: 09/21/2016 Urinary incontinence Onset: Social History Type Date Description Comments Sex Unknown ETOH Use Rarely consumes alcohol Recreational Drug Use Never Used Drugs Tobacco Use Start: Unknown End: Patient is a former smoker Smoking Status Reviewed: 04/13/19 Patient is a former smoker Allergies, Adverse Reactions, Alerts Active Allergies Reaction Severity Comments Date Sulfa Antibiotics 10/22/2014 Benadryl 10/22/2014 Alphagan P 10/22/2014 Seasonal Moderate 04/13/2019 Medications Active Medications SIG Qnty Indications Ordering Provider Date Artificial Tears 1 drop both eye Antonio Pabon, 12/05/2015 1-0.3% nightly M.D. Solution Triamterene/Hydrochloro Unknown thiazide 37.5-25mg Capsules [place] Carbonate Unknown 150mg Capsules Levothyroxine Sodium Take One Tablet Unknown 88mcg By Mouth Every Tablets Day Fish Oil every day Unknown 500mg Capsules Nasal [place] 12 Hour Unknown 0.05% Solution Myrbetriq Take One Tablet Unknown 50mg Tablets ER By Mouth Every 24HR Day Cephalexin Take One Capsule Unknown 500mg Capsules By Mouth Three Times A Day Solifenacin Succinate Take One Tablet Unknown 10mg By Mouth Every Tablets Day Immunizations Description No Information Available Vital Signs Description No Information Available Results Description No Information Available Procedures Description No Information Available Medical Devices Description No Information Available Encounters Description No Information Available Assessments Date Code Description Provider 04/13/2019 H40.1133 Primary open-angle glaucoma, bilateral, Antonio Pabon M.D. severe stage 04/13/2019 Z96.1 Presence of intraocular lens Antonio Pabon M.D. Plan of Treatment 04/13/2019 - Antonio Pabon M.D.H40.1133 Primary open-angle glaucoma, bilateral, severe stageComments:Smoking can increase the risk of developing or worsening any eye related disease, as well as affect your overall health. If you are a smoker, we strongly recommend that you quit.If you are not a smoker, we strongly recommend that you do not start. Your glaucoma is stable at this time.Your eye pressure is within an acceptable range, and your testing does not show any further deterioration at this time. Please continue your treatment.Follow up:6 Month Follow Up DFE/IOP OCT ON You can expect to have your eyes dilated at your next visit. If Dr. Pabon orders any additional testing , it may require extra time. We recommend that you bring sunglasses, as dilation drops often make you light sensitive until they wear off. We always recommend you bring someone to drive you home if you are uncomfortable driving with your eyes dilated. If you have any questions before your next visit, feel free to call our office at .Z96.1 Presence of intraocular lensComments:The artificial lens implants in both eyes appear to be stable at this time. Your lens implant looks stable in your right eye at this time. You should be done, or almost done with your drops at thistime according to your surgical calendar. I have given you a prescription for glasses. If you haveany questions, please feel free to call our office at . Functional Status Description No Information Available Mental Status Description No Information Available Referrals Description No Information Available
[2019-04-16] MEDS ORDERED: NS 0.9% 1000 ML** 1,000 ML IV ONE ×2 (11:58→14:18)
[2019-04-16] MEDS ORDERED: Piperacillin/Tazobac ADVAN(*) 3.375 GM in NS 0.9% 100 ML* 100 ML IVPB ONE (12:00)
[2019-04-16 12:18] LABS: Urine Appearance Cloudy; Urine Bacteria 1+ (Absent); Urine Bilirubin Negative (Negative); Urine Blood 1+ (Negative); Urine Color Yellow; Urine Glucose Negative (Negative); Urine Ketones Negative (Negative); Urine Nitrite Positive (Negative); Urine Protein Negative (Negative); Urine Red Blood Cell 2+(6-10/hpf) (Absent); Urine Specific Gravity 1.004 (1.010-1.030); Urine Urobilinogen Negative (Negative); Urine White Blood Cell 3+(>20/hpf) (Absent)
[2019-04-16 12:33] LABS: Urine Benzodiazepine Screen None Detected (None Detect); Urine Opiates Screen None Detected (None Detect)
--- NOTE | 2019-04-16 12:42 | ED ---
HPI Febrile Illness - HPI Summary HPI Summary: This patient is a 78 year old F arriving via ambulance to [facility] accompanied by son and fiance with a chief complaint of a fever since 0700. Upon arrival patient had a rectal temperature of 104.7. Patient's son states that she has been having trouble keeping her train of thought for the "past week" via phone calls. Patients fiance states that this morning at 0700 he noticed patient's symptoms getting worse. The patient rates the pain 0/10 in severity. Symptoms aggravated by nothing. Symptoms alleviated by nothing. Patient reports syncope episodes and speech aphasia. - History of Current Complaint Chief Complaint: EDFever Time Seen by Provider: 04/16/19 11:46 Hx Obtained From: Family/Resist Coater Developer - Son and Fiance Onset/Duration: Started Weeks Ago, Worse Since - 0700 Timing: Constant Pain Intensity: 0 Pain Scale Used: 0-10 Numeric Aggravating Factors: Nothing Alleviating Factors: Nothing Associated Signs and Symptoms: Other: - Syncope episodes per Son - Allergy/Home Medications Allergies/Adverse Reactions: Allergies Allergy/AdvReac Type Severity Reaction Status Date / Time benzocaine Allergy Rash Verified 04/16/19 14:20 Sulfa (Sulfonamide Allergy Rash Verified 04/16/19 14:20 Antibiotics) "EYE DROP" FOR GLAUCOMA AdvReac BURNING Uncoded 04/16/19 14:20 PAIN Home Medications: Home Medications Solifenacin(NF) [Vesicare(NF)] 10 mg PO DAILY 04/16/19 [History Confirmed ] PMH/Surg Hx/FS Hx/Imm Hx Endocrine/Hematology History: Reports: Hx Thyroid Disease - HYPO - HX OF THYROID NODULE EXCISION Denies: Hx Diabetes Cardiovascular History: Reports: Hx Peripheral Vascular Disease - VARICOSE VEIN SURGERY IN THE PAST, Other Cardiovascular Problems/Disorders - HX DVT APPROX 20 YRS Denies: Hx Hypertension Respiratory History: Reports: Hx Asthma - HX OF - NO INHALERS, Other Respiratory Problems/Disorders - OCCASIONAL WHEEZING WITH EXERTION Denies: Hx Chronic Obstructive Pulmonary Disease (COPD) GI History: Reports: Hx Gall Bladder Disease - pt is unsure- "maybe", Other GI Disorders - OCCASIONAL CONSTIPATION/DIARRHEA - RELATES TO DIET Denies: Hx Ulcer History: Reports: Other Problems/Disorders - HX OF BLADDER LESIONS Musculoskeletal History: Reports: Hx Arthritis - BILATERAL KNEE REPLACEMENTS, Other Musculoskeletal History - POSSIBLE DDD Sensory History: Reports: Hx Cataracts, Hx Contacts or Glasses - GLASSES, Hx Glaucoma Denies: Hx Hearing Aid Opthamlomology History: Reports: Hx Cataracts, Hx Contacts or Glasses - GLASSES , Hx Glaucoma Neurological History: Reports: Hx Headaches, Other Neuro Impairments/Disorders - falls, occassional slurred speech Psychiatric History: Reports: Hx Anxiety, Hx Depression - BIPOLAR - CURRENTLY TREATED WITH LITHIUM - Cancer History Cancer Type, Location and Year: had breast biopsy - took tamoxifen for 5 years r /t this benign issue Hx Chemotherapy: No Hx Radiation Therapy: No - Surgical History Surgical History: Yes Surgery Procedure, Year, and Place: TUBAL LIGATION-1971. APPENDECTOMY-1976. PARTIAL HYSTERECTOMY- 1976. [facility]. 2005 2 LASIK SURGERIES FOR GLAUCOMA [facility]. REMOVAL OF THYROID NODULE, [facility]. CATARACT EXTRACTION BILATERAL EYES WITH IOL IMPLANTS, [facility]. VARICOSE VEINS SURGERY - 20 YEARS AGO, [facility]. BILATERAL KNEE REPLACEMENTS, [facility]. 2 LASER SURGERY FOR GLAUCOMA 2007 [facility]. RIGHT TKR-2007 [facility]. PARTIAL LEFT TKR 2010 [facility]. BILAT CATARACT - 2010 [facility]. THYROIDECTOMY - 2010 [facility]. VARICOSE VEIN SURGERY RIGHT. 09/09 RIGHT TRABECULECTOMY [facility]. RIGHT ROTATOR CUFF 2012 [facility]. RECENT EXCISION OF CORN RIGHT FOOT Hx Anesthesia Reactions: Yes - VOMITING AFTER FIRST KNEE Infectious Disease History: No Infectious Disease History: Denies: Hx Clostridium Difficile, Hx Hepatitis, Hx Human Immunodeficiency Virus (HIV), Traveled Outside the [place] in Last 30 Days - Family History Known Family History: Positive: Other - breast CA - Social History Alcohol Use: Occasionally Hx Substance Use: No Substance Use Type: Reports: None Hx Tobacco Use: Yes Smoking Status (MU): Former Smoker Type: Cigarettes Amount Used/How Often: 1 PPD FOR ABOUT 4 YEARS Length of Time of Smoking/Using Tobacco: 5 YRS Have You Smoked in the Last Year: No Review of Systems Positive: Fever - 104.7 Neurological: Other - Aphasia Positive: Weakness, Syncope All Other Systems Reviewed And Are Negative: Yes Physical Exam - Summary Physical Exam Summary: VITAL SIGNS: Reviewed. GENERAL: Obese FEMALE who is lying comfortable in the stretcher. Patient is not in any acute respiratory distress. HEAD AND FACE: No signs of trauma. No ecchymosis, hematomas or skull depressions. No sinus tenderness. EYES: PERRLA, EOMI x 2, No injected conjunctiva, no nystagmus. EARS: Hearing grossly intact. Ear canals and tympanic membranes are within normal limits. MOUTH: Oropharynx within normal limits. NECK: Supple, trachea is midline, no adenopathy, no JVD, no carotid bruit, no c- spine tenderness, neck with full ROM. CHEST: Symmetric, no tenderness at palpation. LUNGS: Decreased breath sounds bilaterally. No wheezing or crackles. CVS: Regular rate and rhythm, S1 and S2 present, no murmurs or gallops appreciated. ABDOMEN: Soft, non-tender. No signs of distention. No rebound, no guarding, and no masses palpated. Bowel sounds are normal. EXTREMITIES: FROM in all major joints, no edema, no cyanosis or clubbing. NEURO: Alert but not oriented and confused. No acute neurological deficits. Speech is normal and follows commands. SKIN: Dry and warm. Triage Information Reviewed: Yes Vital Signs On Initial Exam: Initial Vitals Temp Pulse Resp BP Pulse Ox 104.7 F 82 20 165/73 96 04/16/19 11:35 04/16/19 11:35 04/16/19 11:35 04/16/19 11:35 04/16/19 11:35 Vital Signs Reviewed: Yes Diagnostics - Vital Signs Vital Signs Temp Pulse Resp BP Pulse Ox 04/16/19 11:35 104.7 F 82 20 165/73 96 - Laboratory Lab Results: Lab Results 04/16/19 04/16/19 Range/Units 11:48 12:12 ABG pH 7.47 H (7.35-7.45) ABG pCO2 34 L (35-45) mmHg ABG pO2 71 L (80-100) mmHg ABG HCO3 26.0 (19-31) mmol/L ABG O2 Saturation 97.7 (94.0-98.0) % ABG Base Excess 1.5 (-2.0-2.0) mmol/L Urine Color Yellow Urine Appearance Cloudy Urine pH 7.0 (5-9) Ur Specific [place] 1.004 L (1.010-1.030) Urine Protein Negative (Negative) Urine Ketones Negative (Negative) Urine Blood 1+ A (Negative) Urine Nitrate Positive A (Negative) Urine Bilirubin Negative (Negative) Urine Urobilinogen Negative (Negative) Ur Leukocyte Esterase 3+ A (Negative) Urine WBC (Auto) 3+(>20/hpf) A (Absent) Urine RBC (Auto) 2+(6-10/hpf) A (Absent) Urine Bacteria 1+ A (Absent) Urine Glucose Negative (Negative) Result Diagrams: 04/16/19 12:50 04/16/19 12:50 Lab Statement: Any lab studies that have been ordered have been reviewed, and results considered in the medical decision making process. - Radiology Chest Xray Radiology Interpretation Completed By: Radiologist Summary of Radiographic Findings: Chest Xray reveals, per radiologist, IMPRESSION: 1. Hypoinflated lungs with no focal airspace opacification. 2. Left lower lobe atelectasis is likely. ED Physician has reviewed this report. - CT Brain CT CT Interpretation Completed By: Radiologist Summary of CT Findings: Brain CT Scan reveals, per radiologist, IMPRESSION: 1. No acute intracranial abnormality. 2. Mild cerebral volume loss. 3. Mild chronic small vessel disease is likely. ED Physician has reviewed this report. Course/Dx - Course Assessment/Plan: Patient is an 78-year-old female who presents to the emergency department with family members 3 ambulance with a chief complaint of fall, confusion, and acute altered mental status. Apparently the symptoms started this morning as per fianc. The patients son also reports that for the last couple months the patient has become more for her. The usual. ABG shows a pH of 7.4, PCO2 34, PO2 71, and O2 sat is 97.7. Urinalysis is positive for nitrates therefore positive UTI. Since the patient initially had a temperature 104.7, however the pulse rate is 82, respiratory is 20, O2 sat is 96 and the blood pressures 165/73 I did not give the patient IV fluids 30 ccs per KG. however, after blood cultures and urine sent I gave the patient Zosyn as a broad -spectrum antibiotic. Blood work without any significant amount except for sodium 150, chloride 119, creatinine 1.4, glucose 121, and the troponin 0.02. Head CT impression: No acute intracranial abnormality. Mild cerebral volume loss. Chronic small vessel ischemic changes. I discussed my physical exam and findings with Dr. Davis to the hospital services who accepted the patient for admission.. - Diagnoses Provider Diagnoses: UTI (urinary tract infection) Is Visit Related: No - Provider Notifications Discussed Care Of Patient With: Teodoro Davis - Hospitalist Time Discussed With Above Provider: 14:16 Instructed by Provider To: Other - Dr. Davis accepts patient for admission. Discharge ED - Sign-Out/Discharge Documenting (check all that apply): Patient Departure - admitted Patient Received Moderate/Deep Sedation with Procedure: No - Discharge Plan Condition: Stable Disposition: ADMITTED TO [facility] Referrals: Ministerio Quinones MD [Primary Care Provider] - - Attestation Statements Document Initiated by Scribe: Yes Documenting Scribe: Hodan Barrett Provider For Whom Scribe is Documenting (Include Credential): Dr. Reinier Gerber Scribe Attestation: Hodan Galarza , scribed for Dr. Reinier Gerber on 04/16/19 at 1425. Status of Scribe Document: Ready
[2019-04-16 13:10] LABS: ABS Lymphocytes 0.4 10^3/ul (1.0-4.8); ABS Monocytes 0.7 10^3/ul (0-0.8); ABS Neutrophils 9.1 10^3/ul (1.5-7.7); Hematocrit 42 % (35-47); Hemoglobin 13.5 g/dL (12.0-16.0); Mean Corpuscular HGB Conc 32 g/dL (31-36); Mean Corpuscular Hemoglobin 31 pg (27-31); Mean Corpuscular Volume 96 fL (80-97); Mean Platelet Volume 9.5 fL (7.4-10.4); Platelet Count 180 10^3/uL (150-450); Red Blood Count 4.34 10^6 /uL (3.70-4.87); Red Cell Distribution Width 16 % (10-15); White Blood Count 10.3 10^3/uL (3.5-10.8)
[2019-04-16 13:24] LABS: ALT 15 U/L (7-52); AST 15 U/L (13-39); Albumin 3.9 g/dL (3.2-5.2); Albumin/Globulin Ratio 1.3 (1-3); Alkaline Phosphatase 65 U/L (34-104); BUN/Creatinine Ratio 11.4 (8-20); Blood Urea Nitrogen 16 mg/dL (6-24); CO2 Carbon Dioxide 25 mmol/L (22-32); Calcium 10.3 mg/dL (8.6-10.3); Creatine Kinase 49 U/L (10-223); EGFR African American 43.8 (>60); EGFR Non-African American 36.2 (>60); Glucose 121 mg/dL (70-100); Magnesium 2.4 mg/dL (1.9-2.7); Potassium 3.9 mmol/L (3.5-5.0); Total Protein 6.9 g/dL (6.4-8.9)
[2019-04-16 13:25] LABS: Troponin I 0.02 ng/mL (<0.04)
[2019-04-16 13:27] LABS: Anion Gap 6 mmol/L (2-11); Chloride 119 mmol/L (101-111); Sodium 150 mmol/L (135-145)
[2019-04-16 13:48] LABS: Acetaminophen < 15 mcg/mL; Alcohol < 10 mg/dL (<10); Salicylate < 2.50 mg/dL (<30)
[2019-04-16 14:03] LABS: TSH (Thyroid Stimulating Horm) 0.37 mcIU/mL (0.34-5.60)
[2019-04-16 14:34] LABS: INR 1.18 (0.82-1.09)
[2019-04-16] MEDS ORDERED: Acetaminophen TAB* 325 MG PO ONE (15:50)
[2019-04-16] MEDS ORDERED: Acetaminophen TAB* 325 MG PO PRN (15:55)
[2019-04-16] MEDS ORDERED: NS 0.9% 1000 ML** 1,000 ML IV SCH (16:00)
[2019-04-16] MEDS: Enoxaparin(*) 40 MG/0.4 ML SYR SUBCUT SCH (16:30)
[2019-04-16] MEDS ORDERED: Zosyn per Pharmacy* NOTE FOLLOW UP SCH (17:00)
[2019-04-16] MEDS ORDERED: cefTRIAXone(*) 1 GM in NS 0.9% 50 ML* 50 ML IVPB SCH (17:00)
[2019-04-16] MEDS ORDERED: Aspirin 81 mg CHEW TAB* 81 MG TAB.CHEW PO ONE (17:03)
[2019-04-16] MEDS: ZOSYN 3.375 GM Q8H per EXTENDED INFUSION IVPB SCH ×2 (20:35)
--- NOTE | 2019-04-16 20:56 | HP ---
CC: Dr. Quinones * HISTORY AND PHYSICAL: DATE OF ADMISSION: 04/16/19 PRIMARY CARE PROVIDER: Dr. Quinones. ATTENDING PHYSICIAN WHILE IN THE HOSPITAL: Dr. Teodoro Davis * (dictated by Dolores Sandoval NP). CHIEF COMPLAINT: Confusion. HISTORY OF PRESENT ILLNESS: Ms. Ambriz is an 78-year-old female with a past medical history significant for bipolar, hypothyroidism, and chronic incontinence,who presented to the emergency room with complaints of weakness and confusion per the family and patient's fiance. Per the fiance, the patient woke up this morning, she came downstairs and presumed took her medications, the fiance then found her rocking back and forth on the couch, confused, mumbling and unable to understand her. He tried to lift her off the couch and she was unable to stay on due to weakness and he lowered her to the floor and called the patient's son and the EMS, and the patient was brought to the emergency room for further evaluation. Upon arrival to the emergency room, the patient was found to have a fever of 104.7. She was given IV fluids and routine lab work was drawn. She was given Zosyn IV for urinary tract infection. Due to her fever meeting sepsis criteria with underlying urinary tract infection, Hospital Medicine was asked to see and evaluate for admission. The son reports that the patient has had intermittent episodes of difficulty with understanding her speech times approximately 2 weeks. The fiance also reports that the patient does have difficulty with her memory and has been more forgetful over the past couple of weeks. He reports that they play cards daily and then yesterday when they went to play Kwanji, she reported she did not remember how to play the game, which was abnormal for her. PAST MEDICAL HISTORY: Significant for: 1. Bipolar. 2. Hypothyroid. 3. Chronic incontinence. PAST SURGICAL HISTORY: 1. Parathyroidectomy. 2. Hysterectomy. 3. Cholecystectomy. 4. Bilateral knee replacements. 5. Breast lumpectomy. 6. Tubal ligation. 7. Eye surgery. HOME MEDICATIONS: Include: 1. VESIcare 10 mg p.o. daily. 2. [place]-3. 3. Myrbetriq 50 mg p.o. daily. 4. [place] 450 mg p.o. b.i.d. 5. Nasal spray. 6. Levothyroxine 88 mcg p.o. daily. ALLERGIES: BENZOCAINE and SULFA. FAMILY HISTORY: The father developed congestive heart failure at the age of 95 , no reported history of diabetes. Sister with breast cancer. SOCIAL HISTORY: The patient quit smoking over 50 years ago. Denies any alcohol or illicit drug use. She currently lives with her fiance. She walks with a walker. Surrogate decision maker in the event she is unable to make her own decisions is her daughter, Lanny, she is a full code. REVIEW OF SYSTEMS: Per the fiance/family, no reported fevers, but the patient did present with a fever. No unintended weight. The patient reports no when asked if she has chest pain. She denies cough, hemoptysis, or shortness of breath. She denies any nausea vomiting. She does report some lower abdominal pain. She denies any pain with urination, weakness on one side, difficulty swallowing, joint or muscle aches, rashes, lesions or open sores. Denies any psychosis or anxiety. PHYSICAL EXAMINATION GENERAL: At this time, Ms. Ambriz is an 78-year-old female. She is resting on the stretcher in the emergency room. She is confused. Her speech is garbled when asked questions, but clear if asked yes and no questions. VITAL SIGNS: Temperature 101.2, blood pressure 137/57, heart rate 75, respirations are 24, O2 saturation 96%. HEENT: Head is atraumatic and normocephalic. Eyes: EOMs are anicteric. Sclerae are anicteric and not pale. Oral mucosa appeared to be moist. NECK: Supple. LUNGS: Clear to auscultation bilaterally. No wheezes, rales or rhonchi. CARDIAC: S1 and S2. Regular rate and rhythm. No murmurs, rubs or gallops. ABDOMEN: Soft, she does have some suprapubic right lower abdomen tenderness to palpation. NEUROLOGIC: She is awake. She is alert. Her speech is garbled. She is able to answer yes or no questions appropriately. She is able to follow commands. Hand supervisor dehydrogenation are equal. Smile is equal. There is no facial asymmetry. Tongue is midline. SKIN: Intact. She does have mild erythema noted to her right lower leg. DIAGNOSTIC STUDIES/LAB DATA: WBCs are 10.3, RBCs 4.34, hemoglobin 13.5, hematocrit 42, platelet count 180. INR is 1.18. Blood gas; pH was 7.47, pCO2 of 34, pO2 was 71. Sodium 150, potassium 3.9, chloride 119, carbon dioxide is 125, anion gap was 6, BUN 16, creatinine 1.40, glucose is 121, lactic acid 1.7, calcium 10.3, magnesium 2.4. ASTs are 15, ALTs are 15, alkaline phosphatase is 65. TSH was 0.37. Urine; pH was 7.0, specific gravity 1.004, urine protein and ketones were negative, urine blood was +1, nitrites were positive, bilirubin was negative, urobilinogen was negative, leukocyte esterase was 3+, wbc's were 2+, rbc's were 2+, bacteria was 1+. Toxicology; salicylate was less than 2.50, urine tox was negative, acetaminophen less than 15, lithium was 0.80 and serum alcohol was less than 10. She had a CT of the brain, radiologist impression: No acute intracranial abnormality, mild cerebral volume loss, mild chronic small vessel disease is likely. She had an electrocardiogram, which showed sinus rhythm at a rate of 80. She had a chest x-ray, which showed hypoinflated lungs with no focal airspace opacification, left lower lobe atelectasis is likely. ASSESSMENT AND PLAN: Ms. Ambriz is an 78-year-old female with past medical history significant for bipolar, hypothyroidism and chronic incontinence, who presented to the emergency room with complaint of weakness and confusion and found to have urine meeting sepsis criteria with urinary tract infection. She will be admitted inpatient for: 1. Sepsis. The patient does meet a sepsis criteria with temperature of 104.7 and tachypnea of 24, suspect urinary tract infection. She did receive 2 L of normal saline in the emergency room. I will continue normal saline at 100 cc per hour. She did receive Zosyn 3.375 g. We will continue her on Zosyn IV as per pharmacy protocol. The patient does have mild elevation in her creatinine of 1.40. If her creatinine does not improve with hydration, I would recommend renal ultrasound. 2. Confusion. The patient does have confusion. She did present with a fever of 104.7. I suspect that her confusion is related to underlying infection and fever. The patient did have a CT of the brain in the emergency room that showed no acute intracranial abnormality. Family does report that she has had intermittent garbled speech on and off for 2 weeks. If her symptoms do not improve, I would recommend an MRI of the brain and a consultation to Neurology for further recommendations. I suspect this could also be related to toxic metabolic encephalopathy related to her underlying infection . I will start her on a baby aspirin as the patient does have garbled speech. If this does not clear with decreasing her fever and IV antibiotics, this could be related to transient ischemic attack versus cerebrovascular accident, I will also get a lipid profile. 3. Hypothyroidism. She should continue on levothyroxine as previously prescribed. 4. Bipolar. She should continue on lithium 450 mg p.o. b.i.d. 5. FEN. She could have a regular diet. 6. Code status. She is a full code. 7. DVT prophylaxis. I will place her on Lovenox subcu. TIME SPENT: Time spent on this admission was 60 minutes, greater than half the time was spent at the bedside reviewing the events leading thus far to hospitalization, performing my physical exam and reviewing my plan of care. I have discussed this with Dr. Abiel Guerrier, he is in agreement with my plan. DOLORES SANDOVAL, MOIZ [id number]/[facility] #: [id number] DANYELLE
[2019-04-16] MEDS: Lithium Carbonate ER* 450 MG TAB.ER PO SCH (21:44)
[2019-04-17] MEDS ORDERED: Piperacillin/Tazobac ADVAN(*) 3.375 GM in NS 0.9% 100 ML* 100 ML IVPB SCH (04:30)
[2019-04-17] MEDS: ZOSYN 3.375 GM Q8H per EXTENDED INFUSION IVPB SCH ×2 (05:06)
[2019-04-17] MEDS: Levothyroxine TAB* 88 MCG TAB PO SCH (06:26)
[2019-04-17 06:36] LABS: ABS Lymphocytes 0.9 10^3/ul (1.0-4.8); ABS Monocytes 0.6 10^3/ul (0-0.8); ABS Neutrophils 6.1 10^3/ul (1.5-7.7); Eosinophil % 0.5 %; Hematocrit 33 % (35-47); Hemoglobin 10.8 g/dL (12.0-16.0); Lymphocyte % 11.6 %; Mean Corpuscular HGB Conc 33 g/dL (31-36); Mean Corpuscular Hemoglobin 31 pg (27-31); Mean Corpuscular Volume 96 fL (80-97); Mean Platelet Volume 9.3 fL (7.4-10.4); Platelet Count 149 10^3/uL (150-450); Red Blood Count 3.45 10^6 /uL (3.70-4.87); Red Cell Distribution Width 16 % (10-15); White Blood Count 7.7 10^3/uL (3.5-10.8)
[2019-04-17 06:55] LABS: Calcium 9.1 mg/dL (8.6-10.3); EGFR African American 46.4 (>60); EGFR Non-African American 38.4 (>60); HDL Cholesterol 29.4 mg/dL; Potassium 3.7 mmol/L (3.5-5.0)
[2019-04-17] MEDS ORDERED: NS 0.9% 1000 ML** 1,000 ML IV SCH (08:30)
[2019-04-17] MEDS ORDERED: Lactated Ringers 1000 ML Bag* 1,000 ML IV SCH (09:00)
[2019-04-17] MEDS ORDERED: Aspirin 81 mg CHEW TAB* 81 MG TAB.CHEW PO SCH (09:00)
[2019-04-17] MEDS: Lithium Carbonate ER* 450 MG TAB.ER PO SCH ×2 (10:21→20:27)
[2019-04-17] MEDS: Nystatin TOP POWDER* 15 GM BTL TOPICAL SCH ×3 (10:24→20:28)
--- NOTE | 2019-04-17 12:47 | PN ---
Subjective Date of Service: 04/17/19 Interval History: Patient confused at times, overall answering questions appropriately. Patient's daughter tells me her confusion is far improved from yesterday. Denies fever/chills today, chest pain, abd pain, difficulty breathing, dysuria. She and her family tell me the loss of left peripheral vision I'm finding on exam is new. Objective Active Medications: Acetaminophen (Tylenol Tab*) 650 mg PO Q4H PRN PRN Reason: MILD PAIN or TEMP > 100.4 Last Admin: 04/17/19 02:58 Dose: 650 mg Aspirin (Aspirin 81 Mg Chew Tab*) 81 mg PO DAILY [facility] Last Admin: 04/17/19 10:22 Dose: 81 mg Enoxaparin Sodium (Lovenox(*)) 40 mg SUBCUT Q24H [facility] Last Admin: 04/16/19 16:30 Dose: 40 mg Ceftriaxone Sodium 1 gm/ (Sodium Chloride) 50 mls @ 100 mls/hr IVPB Q24H [facility] Sodium Chloride (Ns 0.9% 1000 Ml) 1,000 mls @ 100 mls/hr IV PER RATE [facility] Levothyroxine Sodium (Synthroid Tab*) 88 mcg PO 0600 [facility] Last Admin: 04/17/19 06:26 Dose: 88 mcg [place] Carbonate ([place] Carbonate Er Tab*) 450 mg PO BID [facility] Last Admin: 04/17/19 10:21 Dose: 450 mg Nystatin (Nystatin Top Powder*) 1 applic TOPICAL TID [facility] Last Admin: 04/17/19 10:24 Dose: 1 applic Vital Signs - 8 hr 04/17/19 04/17/19 04/17/19 07:00 11:00 12:06 Temperature 97.8 F 98.2 F 98.2 F Pulse Rate 58 64 64 Respiratory 16 16 16 Rate Blood Pressure 109/55 96/41 119/58 (mmHg) O2 Sat by Pulse 98 96 96 Oximetry Oxygen Devices in Use Now: None Appearance: Obese, elderly white female, laying upright, appearing in NAD Eyes: No Scleral Icterus, PERRLA, - - left hemianopsia; right side of visual littlejohn intact Ears/Nose/Mouth/Throat: Mucous Membranes Moist Neck: NL Appearance and Movements; NL JVP Respiratory: Symmetrical Chest Expansion and Respiratory Effort, Clear to Auscultation Cardiovascular: NL Sounds; No Murmurs; No JVD, RRR Abdominal: - - abd soft, nontender, nondistended; no suprapubic tenderness Extremities: No Edema, No Clubbing, Cyanosis Skin: No Rash or Ulcers Neurological: NL Sensation, - - 5/5 strength in all extremities; alert and oriented to self and time but not location; speech is clear, face is symmetrical Result Diagrams: 04/17/19 06:25 04/17/19 06:25 Additional Lab and Data: Lab Results 04/16/19 04/16/19 Range/Units 11:48 12:12 ABG pH 7.47 H (7.35-7.45) ABG pCO2 34 L (35-45) mmHg ABG pO2 71 L (80-100) mmHg ABG HCO3 26.0 (19-31) mmol/L ABG O2 Saturation 97.7 (94.0-98.0) % ABG Base Excess 1.5 (-2.0-2.0) mmol/L Urine Color Yellow Urine Appearance Cloudy Urine pH 7.0 (5-9) Ur Specific [place] 1.004 L (1.010-1.030) Urine Protein Negative (Negative) Urine Ketones Negative (Negative) Urine Blood 1+ A (Negative) Urine Nitrate Positive A (Negative) Urine Bilirubin Negative (Negative) Urine Urobilinogen Negative (Negative) Ur Leukocyte Esterase 3+ A (Negative) Urine WBC (Auto) 3+(>20/hpf) A (Absent) Urine RBC (Auto) 2+(6-10/hpf) A (Absent) Urine Bacteria 1+ A (Absent) Urine Glucose Negative (Negative) Assess/Plan/Problems-Billing Assessment: 78 yo female with PMHx bipolar disorder, hypothyroidism, and incontinence presents with confusion and a fever. - Patient Problems (1) Altered mental status Current Visit: Yes Status: Acute Code(s): R41.82 - ALTERED MENTAL STATUS, UNSPECIFIED SNOMED Code(s): 698447820 Comment: -suspect metabolic encephalopathy 2/2 UTI, however I do have concern for CVA given new left hemianopsia on exam and slurred/garbled speech reported yesterday. Speech is clear today. -lithium level and TSH wnl -CT brain negative -ordered MRI brain w/o contrast to r/o CVA -Neurology consulted. LDL<70 and HA1c <6.5. Patient was started on aspirin yesterday. Appreciate further neurology input. (2) Sepsis Current Visit: Yes Status: Acute Comment: -secondary to UTI, see further below -signs of sepsis resolved. Without fever thus far today and RR and HR wnl. No leukocytosis at admission -blood culture no growth to date (3) UTI (urinary tract infection) Current Visit: Yes Status: Acute Comment: -urine culture today demonstrating pseudomonas aeruginosa -initially changed patient's zosyn to ceftriaxone this morning, now changing to cefepime given culture -awaiting S&S -afebrile thus far today but not for a full 24 hours -no leukocytosis. Signs of sepsis resolved (4) MYRIAM (acute kidney injury) Current Visit: Yes Status: Acute Code(s): N17.9 - ACUTE KIDNEY FAILURE, UNSPECIFIED SNOMED Code(s): 69171102 Comment: -suspect prerenal in setting of sepsis -improving with IVF -continue IVF, changing NS to LR given hypernatremia (5) Bipolar disorder Current Visit: Yes Status: Acute Code(s): F31.9 - BIPOLAR DISORDER, UNSPECIFIED SNOMED Code(s): 00379937 Comment: -continue lithium -lithium level wnl at admission (6) Hypothyroidism Current Visit: Yes Status: Acute Code(s): E03.9 - HYPOTHYROIDISM, UNSPECIFIED SNOMED Code(s): 82210915 Comment: -continue synthroid -TSH wnl (7) DVT prophylaxis Current Visit: Yes Status: Acute Code(s): Z29.9 - ENCOUNTER FOR PROPHYLACTIC MEASURES, UNSPECIFIED SNOMED Code(s): 935503472 (8) Full code status Current Visit: Yes Status: Acute Code(s): Z78.9 - OTHER SPECIFIED HEALTH STATUS SNOMED Code(s): 532770193 Status and Disposition: Patient's family brings up social concerns regarding patient's home life with her boyfriend. SW involved. PT recommending VINICIO at discharge. Remains inpatient for further workup and will d/c when medically stable.
[2019-04-17] MEDS: Cefepime 2 GM in Dextrose(*) 2 GM/50 ML BAG IV SCH (15:44)
[2019-04-17] MEDS: Enoxaparin(*) 40 MG/0.4 ML SYR SUBCUT SCH (16:54)
[2019-04-17] MEDS: Lactated Ringers 1000 ML Bag* 1,000 ML IV SCH (16:55)
[2019-04-17] MEDS ORDERED: cefTRIAXone(*) 1 GM in NS 0.9% 50 ML* 50 ML IVPB SCH (18:00)
--- NOTE | 2019-04-17 18:49 | CONS ---
NEUROLOGY CONSULTATION: DATE OF CONSULT: 04/17/19 REFERRING PROVIDER: IRAIDA Freeman PRIMARY CARE PHYSICIAN: Dr. Quinones. LOCATION: She is an inpatient in room 416. CHIEF COMPLAINT: Delirium, change in vision. HISTORY OF PRESENT ILLNESS: Verona Ambriz is an 78-year-old woman who was admitted yesterday with urosepsis. She was quite delirious and today that is much improved. Her daughter and granddaughter are present. They agree that she is much better, but still is prone to confusion and word finding problems. She was examined by Maggie Del Rio today and noted to have a left hemianopia. It is not clear from the notes whether it is homonymous or not. Ms. Ambriz has not noticed any recent change in her vision. She does have a history of glaucoma and has had multiple procedures done in the right eye. She said she just had a checkup with Dr. Pabon recently and that her eye pressures were in good shape. She had previously taken drops for them, but they irritated her eyes and so she just had some procedures and is no longer on drops. She denies any headache. There is no history of stroke or transient ischemic attacks. PAST MEDICAL HISTORY: Notable for bipolar disorder, glaucoma, hypothyroidism, parathyroid surgery, bilateral knee replacements, multiple eye surgeries, breast lumpectomy. MEDICATIONS: At home consisted of: 1. [place] 450 mg p.o. b.i.d. 2. Levothyroxine 88 mcg p.o. daily. 3. Myrbetriq 50 mg p.o. daily. 4. VESIcare 10 mg p.o. daily. ALLERGIES: She is allergic to SULFA drugs and BENZOCAINE. REVIEW OF SYSTEMS: Notable for a fall at a senior event about a week ago. She hit her head her daughter and was evaluated in the emergency room and had a CT of the brain, which was interpreted as normal. She denies double vision. She denies headache. There is no history of cardiac, pulmonary, GI, or other renal disease. PHYSICAL EXAMINATION: She is well nourished and well hydrated. Temperature is 98.4, blood pressure 120/54, heart rate is in the 60s, respiratory rate is 16, and oxygen saturation is 96% on room air. Neurologic Exam: Pupils react equally from about 2.5 to 2 mm. Eye movements are normal. Funduscopic exam reveals pale discs bilaterally. Visual littlejohn are difficult due to impersistence of gaze, but she seems to have ability to sense finger movement in all 4 quadrants out the left eye and to a more limited extent with some right and left lower constriction of vision out of the right eye. Facial musculature is symmetric. Speech is clear. There is no asterixis. I did not attempt to ambulate her. She is able to provide some history, but clearly has poor memory, attention, and concentration. She has word finding problems and also comes up with paraphasic errors. IMPRESSION AND PLAN: My impression is that any visual changes are probably from her glaucoma. I do not see anything to suggest acute stroke. Her delirium is improving. An MRI of the brain has been ordered and I think that is reasonable. If it is negative, then I would just continue to treat her urosepsis and supportive care for her delirium. [id number]/CPS #: [id number] MTDLevi
[2019-04-18] MEDS: Cefepime 2 GM in Dextrose(*) 2 GM/50 ML BAG IV SCH ×2 (02:44→15:22)
[2019-04-18] MEDS: Levothyroxine TAB* 88 MCG TAB PO SCH (07:02)
[2019-04-18 09:31] LABS: ABS Eosinophils 0.2 10^3/ul (0-0.6); ABS Lymphocytes 1.2 10^3/ul (1.0-4.8); ABS Monocytes 0.5 10^3/ul (0-0.8); ABS Neutrophils 3.5 10^3/ul (1.5-7.7); Eosinophil % 3.4 %; Hematocrit 39 % (35-47); Hemoglobin 12.1 g/dL (12.0-16.0); Lymphocyte % 21.4 %; Mean Corpuscular HGB Conc 31 g/dL (31-36); Mean Corpuscular Hemoglobin 31 pg (27-31); Mean Corpuscular Volume 99 fL (80-97); Mean Platelet Volume 9.6 fL (7.4-10.4); Platelet Count 159 10^3/uL (150-450); Red Cell Distribution Width 17 % (10-15); White Blood Count 5.5 10^3/uL (3.5-10.8)
--- NOTE | 2019-04-18 09:47 | PN ---
Subjective Date of Service: 04/18/19 Interval History: Patient's confusion is still improving. Patient answers questions completely appropriately today and is fully oriented. Family tells me she was trying to get out of bed without assistance. Denies fever/chills, chest pain, dysuria, difficulty breathing, nausea/vomiting. Complains of intermittent abdominal pain but she has not had a BM. Objective Active Medications: Acetaminophen (Tylenol Tab*) 650 mg PO Q4H PRN PRN Reason: MILD PAIN or TEMP > 100.4 Last Admin: 04/17/19 02:58 Dose: 650 mg Enoxaparin Sodium (Lovenox(*)) 40 mg SUBCUT Q24H [facility] Last Admin: 04/17/19 16:54 Dose: 40 mg Cefepime HCl (Maxipime 2 Gm In Dextrose Duplex (*)) 2 gm in 50 mls @ 100 mls/ hr IV Q12H [facility] Last Admin: 04/18/19 02:44 Dose: 100 mls/hr Lactated Ringer's (Lactated Ringers 1000 Ml Bag*) 1,000 mls @ 100 mls/hr IV PER RATE [facility] Last Admin: 04/17/19 16:55 Dose: 100 mls/hr Levothyroxine Sodium (Synthroid Tab*) 88 mcg PO 0600 [facility] Last Admin: 04/18/19 07:02 Dose: 88 mcg [place] Carbonate ([place] Carbonate Er Tab*) 450 mg PO BID [facility] Last Admin: 04/17/19 20:27 Dose: 450 mg Nystatin (Nystatin Top Powder*) 1 applic TOPICAL TID [facility] Last Admin: 04/17/19 20:28 Dose: 1 applic Vital Signs - 8 hr 04/18/19 04/18/19 03:07 07:00 Temperature 97.9 F 97.4 F Pulse Rate 61 56 Respiratory 18 16 Rate Blood Pressure 132/61 139/66 (mmHg) O2 Sat by Pulse 96 96 Oximetry Oxygen Devices in Use Now: None Appearance: Obese, elderly, white female, laying upright in bed, in NAD Eyes: No Scleral Icterus, PERRLA Ears/Nose/Mouth/Throat: Mucous Membranes Moist Neck: NL Appearance and Movements; NL JVP Respiratory: Symmetrical Chest Expansion and Respiratory Effort, Clear to Auscultation Cardiovascular: NL Sounds; No Murmurs; No JVD, RRR Abdominal: - - abd soft, nontender, nondistended Extremities: No Edema, No Clubbing, Cyanosis Neurological: NL Muscle Strength and Tone, - - alert and oriented x 4; knows current president Result Diagrams: 04/18/19 09:20 04/18/19 09:20 Additional Lab and Data: Lab Results 04/16/19 04/16/19 Range/Units 11:48 12:12 ABG pH 7.47 H (7.35-7.45) ABG pCO2 34 L (35-45) mmHg ABG pO2 71 L (80-100) mmHg ABG HCO3 26.0 (19-31) mmol/L ABG O2 Saturation 97.7 (94.0-98.0) % ABG Base Excess 1.5 (-2.0-2.0) mmol/L Urine Color Yellow Urine Appearance Cloudy Urine pH 7.0 (5-9) Ur Specific [place] 1.004 L (1.010-1.030) Urine Protein Negative (Negative) Urine Ketones Negative (Negative) Urine Blood 1+ A (Negative) Urine Nitrate Positive A (Negative) Urine Bilirubin Negative (Negative) Urine Urobilinogen Negative (Negative) Ur Leukocyte Esterase 3+ A (Negative) Urine WBC (Auto) 3+(>20/hpf) A (Absent) Urine RBC (Auto) 2+(6-10/hpf) A (Absent) Urine Bacteria 1+ A (Absent) Urine Glucose Negative (Negative) Microbiology and Other Data: Microbiology 04/16/19 11:48 Urine Culture - Final Urine Pseudomonas Aeruginosa 04/16/19 14:00 Aerobic Blood Culture - Preliminary Blood Venous No Growth Day 1 Anaerobic Blood Culture - Preliminary No Growth Day 1 04/16/19 12:50 Aerobic Blood Culture - Preliminary Blood Venous No Growth Day 1 Anaerobic Blood Culture - Preliminary No Growth Day 1 Assess/Plan/Problems-Billing Assessment: 78 yo female with PMHx bipolar disorder, hypothyroidism, and incontinence presents with confusion and a fever. - Patient Problems (1) Altered mental status Current Visit: Yes Status: Acute Code(s): R41.82 - ALTERED MENTAL STATUS, UNSPECIFIED SNOMED Code(s): 941261432 Comment: -suspect metabolic encephalopathy 2/2 UTI -CVA ruled out with brain MRI without evidence of infarct -lithium level and TSH wnl -Neurology consulted. Believe hemianopsia found on exam likely secondary to glaucoma (2) UTI (urinary tract infection) Current Visit: Yes Status: Acute Comment: -urine culture today demonstrating pseudomonas aeruginosa -initially changed patient's zosyn to ceftriaxone this morning, now changing to cefepime given culture -afebrile thus far today but not for a full 24 hours -no leukocytosis. Signs of sepsis resolved (3) Sepsis Current Visit: Yes Status: Acute Comment: -secondary to UTI, see further below -signs of sepsis resolved. Without fever thus far today and RR and HR wnl. No leukocytosis at admission -blood culture no growth to date (4) MYRIAM (acute kidney injury) Current Visit: Yes Status: Acute Code(s): N17.9 - ACUTE KIDNEY FAILURE, UNSPECIFIED SNOMED Code(s): 55639249 Comment: -suspect prerenal in setting of sepsis -improving slowly. Cr today 1.28 and patient's baseline is ~1.0 -continue IVF (5) Bipolar disorder Current Visit: Yes Status: Acute Code(s): F31.9 - BIPOLAR DISORDER, UNSPECIFIED SNOMED Code(s): 54693282 Comment: -continue lithium -lithium level wnl at admission (6) Hypothyroidism Current Visit: Yes Status: Acute Code(s): E03.9 - HYPOTHYROIDISM, UNSPECIFIED SNOMED Code(s): 28942198 Comment: -continue synthroid -TSH wnl (7) DVT prophylaxis Current Visit: Yes Status: Acute Code(s): Z29.9 - ENCOUNTER FOR PROPHYLACTIC MEASURES, UNSPECIFIED SNOMED Code(s): 081546164 Comment: -lovenox (8) Full code status Current Visit: Yes Status: Acute Code(s): Z78.9 - OTHER SPECIFIED HEALTH STATUS SNOMED Code(s): 169499016 Status and Disposition: Patient's family brings up social concerns regarding patient's home life with her boyfriend. SW involved. Will d/c to [facility] when medically stable. Anticipate possible d/c tomorrow pending MYRIAM improvement.
[2019-04-18 09:49] LABS: BUN/Creatinine Ratio 10.9 (8-20); Calcium 9.9 mg/dL (8.6-10.3); EGFR African American 48.5 (>60); EGFR Non-African American 40.1 (>60); Potassium 4.3 mmol/L (3.5-5.0)
[2019-04-18] MEDS: Polyethylene Glycol 3350* 17 GM PACKET PO SCH (10:33)
[2019-04-18] MEDS: Lithium Carbonate ER* 450 MG TAB.ER PO SCH ×2 (10:33→23:03)
[2019-04-18] MEDS: Nystatin TOP POWDER* 15 GM BTL TOPICAL SCH ×3 (12:26→23:06)
[2019-04-18] MEDS: Enoxaparin(*) 40 MG/0.4 ML SYR SUBCUT SCH (15:22)
[2019-04-18] MEDS: Lactated Ringers 1000 ML Bag* 1,000 ML IV SCH (18:39)
[2019-04-19] MEDS: Cefepime 2 GM in Dextrose(*) 2 GM/50 ML BAG IV SCH (03:56)
[2019-04-19] MEDS: Levothyroxine TAB* 88 MCG TAB PO SCH (05:12)
[2019-04-19 08:23] VITALS: BP 138/82
[2019-04-19 09:13] LABS: BUN/Creatinine Ratio 11.2 (8-20); Calcium 10.1 mg/dL (8.6-10.3); EGFR African American 54.4 (>60); Potassium 3.9 mmol/L (3.5-5.0)
--- NOTE | 2019-04-19 10:35 | DS ---
CC: Dr. Quinones * DATE OF ADMISSION: 04/16/2019. DATE OF DISCHARGE: 04/19/2019. PRIMARY CARE PHYSICIAN: Dr. Quinones. ATTENDING PHYSICIAN WHILE IN THE HOSPITAL: Dr. Radha Parker * (dictated by IRAIDA Freeman). PRIMARY DIAGNOSES: 1. Sepsis secondary to UTI, sepsis resolved. 2. MYRIAM. 3. Altered mental status likely secondary to metabolic encephalopathy in the setting of UTI, resolved. SECONDARY DIAGNOSES: 1. Bipolar disorder. 2. Hypothyroidism. 3. Chronic incontinence. PERTINENT LAB DATA: Urine culture positive for pseudomonas aeruginosa, resistant to Cefazolin. Creatinine on the date of admission 1.4; creatinine on the date of discharge 1.16. [place] level 0.80. IMAGING STUDIES: Brain MRI on 04/17/2019: Impression: (1) There is no restricted diffusion within the brain to suggest an acute infarct. (2) There are periventricular foci of FLAIR hyperintensity within the cerebral white matter. In a patient this age, this likely represents chronic small vessel ischemic disease. (3) Mild to moderate atrophy. HISTORY OF PRESENT ILLNESS/HOSPITAL COURSE: Verona Ambriz is an 78-year-old white female with a past medical history significant for bipolar disorder, hypothyroidism, and incontinence who presented to the emergency department on due to confusion and slurred speech. Please see admission history and physical written by Dolores Sandoval NP for further details. The patient presented with a fever of 100.4 degrees Fahrenheit and met sepsis criteria. Sepsis was found to be secondary to urinary tract infection which she was treated empirically for with Zosyn which was later switched to Ceftriaxone. Once urine culture demonstrated pseudomonas, she was switched to Cefepime for appropriate coverage. Sensitivities later demonstrated that this was in fact sensitive to Cefepime and was continued during the rest of her hospital stay. Her altered mental status slowly improved to the point of her baseline; however , on the day following admission, there was concern for stroke given the patient 's slurring of speech and new found left hemianopsia which was new per patient and documentation. The patient had an MRI of her brain with results as above. The patient did initially have a brain CT in the emergency department as well which was without acute intracranial findings. Therefore the patient was found to be negative for CVA. Dr. Hawthorne, neurology, suspected that this left hemianopsia was likely related to her glaucoma. By the date of discharge, the patient had been afebrile for over 72 hours and the patient never had a leukocytosis during her hospital stay. The patient's family expressed concerns regarding some financial views of the patient's boyfriend, who she lives with. Social Work was involved in this case who recommended that the patient's power of estate planning attorney, who is her son, freeze her accounts. Additionally, a psychosocial rehabilitation counselor offered to reach out to [facility]. During her stay, she was found to benefit from continued rehab by our physical therapist. The patient and the patient's family were in agreement with subacute rehab at discharge. PHYSICAL EXAMINATION ON THE DAY OF DISCHARGE: General: Obese, elderly, white female lying upright in the hospital bed, appearing comfortable in no acute distress. HEENT: Mucous membranes moist. Lungs: Clear to auscultation throughout. Cardio: Regular rate and rhythm without murmurs, rubs, or gallops. Abdomen: Normoactive bowel sounds all four quadrants. Abdomen is soft , nontender, nondistended. No CVA tenderness. No suprapubic tenderness. Extremities: No clubbing, cyanosis, or edema. Neuro: The patient is alert and oriented times four. No focal deficits. Able to move all extremities. No tremors. DISCHARGE PLAN: The patient should follow-up with her primary care provider within seven to ten days after discharge from [facility] for subacute rehab. The patient's BMP should be repeated within four to five days after discharge from this facility to follow her BUN and creatinine. The patient is advised to return to the emergency department if she is experiencing hematuria, dysuria, fever, chills, or severe pain in her joints. DISCHARGE MEDICATIONS: New medications: Ciprofloxacin 500 mg p.o. b.i.d. times 3 days starting today. Continued home medications: 1. Vesicare 10 mg p.o. daily. 2. Phenylephrine nasal spray one spray both nares daily. 3. Fish oil 1,000 mg p.o. daily. 4. Mirabegron 50 mg p.o. daily. 5. [place] 450 mg p.o. b.i.d. 6. Synthroid 88 mcg p.o. daily. 7. Acetaminophen 500 mg p.o. q.8 hours prn pain. DIET: Regular unrestricted diet. ACTIVITY: The patient may return to normal activity as tolerated. CONDITION ON DISCHARGE: Stable. DISPOSITION: To [facility] for subacute rehab. TIME SPENT: Approximately 40 minutes were spent on this discharge, approximately half of that time was spent at the bedside discussing the plan of care with the patient and evaluating the patient. IRAIDA FREEMAN [id number]/[facility] #: [id number] MTDLevi
[2019-04-19] MEDS: Polyethylene Glycol 3350* 17 GM PACKET PO SCH (10:39)
[2019-04-19] MEDS: Lithium Carbonate ER* 450 MG TAB.ER PO SCH (10:39)
[2019-04-19] MEDS: Nystatin TOP POWDER* 15 GM BTL TOPICAL SCH (10:39)
== END 2019-04-19 12:50 | DRG 871 ==
LOC: ED 11:28 → MED 15:55
PROVIDERS: ADMIT Nurse Practitioner; ATTEND Internal Medicine
DX: A41.9 Sepsis, unspecified organism (principal); G93.41 Metabolic encephalopathy; N17.9 Acute kidney failure, unspecified; N39.0 Urinary tract infection, site not specified; J98.11 Atelectasis; R41.0 Disorientation, unspecified; E03.9 Hypothyroidism, unspecified; F31.9 Bipolar disorder, unspecified; H40.9 Unspecified glaucoma; B96.5 Pseudomonas (aeruginosa) (mallei) (pseudomallei) as the cause of diseases classified elsewhere; R32 Unspecified urinary incontinence; H53.47 Heteronymous bilateral field defects; E66.9 Obesity, unspecified; Z96.653 Presence of artificial knee joint, bilateral; Z68.33 Body mass index [BMI] 33.0-33.9, adult; Z79.899 Other long term (current) drug therapy; Z88.2 Allergy status to sulfonamides; Z88.8 Allergy status to other drugs, medicaments and biological substances; Z82.49 Family history of ischemic heart disease and other diseases of the circulatory system; Z80.3 Family history of malignant neoplasm of breast; Z87.891 Personal history of nicotine dependence
CPT/HCPCS: 36415; 70450; 70551; 71045; 80048; 80053; 80061; 80178; 80307; 80320; 80329; 81003; 81015; 82550; 82803; 83036; 83605; 83735; 84443; 84484; 85025; 85610; 87040; 87077; 87086; 87186; 93005; 99284; A9270-GY; G0480; G8978-GP-CK; G8979-GP-CI; G8987-GO-CK; G8988-GO-CI; J0692; J0696; J1650; J2543

== ENCOUNTER 2023-08-14 05:45 | Inpatient (IN) ==
[2023-08-14 08:01] LABS: ALT 19 U/L (7-52); AST 23 U/L (13-39); Albumin 4.2 g/dL (3.2-5.2); Albumin/Globulin Ratio 1.1 (1-3); Alkaline Phosphatase 83 U/L (35-149); Anion Gap 9 mmol/L (2-16); Blood Urea Nitrogen 62 mg/dL (6-24); CO2 Carbon Dioxide 21 mmol/L (22-32); Calcium 10.8 mg/dL (8.6-10.3); Chloride 100 mmol/L (101-111); Creatinine, Serum 2.22 mg/dL (0.51-0.95); Globulin 3.8 g/dL (2-4); Glucose 105 mg/dL (70-100); Potassium 7.4 mmol/L (3.5-5.0); Sodium 130 mmol/L (135-145); Total Bilirubin 0.6 mg/dL (0.2-1.0); eGFR CKD-EPI 21.3 (>60)
[2023-08-14] MEDS ORDERED: Lactated Ringers 1000 ml BAG 1,000 ML IV ONE (08:01)
[2023-08-14 08:07] LABS: Lithium < 0.16 mmol/L (0.6-1.2)
[2023-08-14 08:12] LABS: ABS Eosinophils 0.2 10^3/uL (0.0-0.5); ABS Lymphocytes 1.4 10^3/uL (1.0-4.8); ABS Monocytes 0.9 10^3/uL (0.0-0.9); ABS Neutrophils 10.4 10^3/uL (1.5-7.6); ABS Nucleated RBC 0.01 10^3/ul; Eosinophil % 1.6 %; Hematocrit 45.8 % (35-45); Hemoglobin 14.9 g/dL (11.5-14.3); Mean Corpuscular Hemoglobin 30.4 pg (27-33); Mean Corpuscular Hgb Conc 32.6 g/dL (31-36); Mean Corpuscular Volume 93.4 fL (80-97); Mean Platelet Volume 9.8 fL (7.5-11.2); Nucleated Red Blood Cells % 0.1 %/100WBC (0.0-0.8); Platelet Count 242 10^3/uL (150-450); Red Cell Distribution Width 15.4 % (12-17); White Blood Count 12.9 10^3/uL (3.8-11.8)
[2023-08-14 09:24] LABS: Calcium 10.7 mg/dL (8.6-10.3); Creatinine, Serum 2.23 mg/dL (0.51-0.95); Potassium 7.5 mmol/L (3.5-5.0); eGFR CKD-EPI 21.2 (>60)
[2023-08-14] MEDS ORDERED: CALCIUM GLUCONATE 1GM/50ML NS 1 GM/50 ML BAG IV ONE (09:24)
[2023-08-14] MEDS ORDERED: D5W 1/2 NS 1000 ml BAG 1,000 ML IV ONE (09:27)
[2023-08-14] MEDS ORDERED: Sodium Polystyrene ORAL.SUSP 15 GM/60 ML BTL PO ONE ×2 (09:28→09:40)
[2023-08-14] MEDS ORDERED: Dextrose 50% Syringe 50 ml 25 GM/50 ML SYRINGE ONE (09:40)
[2023-08-14] MEDS ORDERED: Dextrose 50% Syringe 50 ml 25 GM/50 ML SYRINGE IV PUSH ONE (09:41)
[2023-08-14] MEDS: NS 0.9% 1000 ml BAG 1,000 ML IV SCH ×2 (10:20→20:40)
[2023-08-14 11:49] LABS: Urine Appearance Cloudy; Urine Bilirubin Negative (Negative); Urine Blood Negative (Negative); Urine Color Straw; Urine Glucose 1+(50 mg/dL) (Negative); Urine Ketones Negative (Negative); Urine Nitrite Negative (Negative); Urine Protein Negative (Negative); Urine Specific Gravity 1.008 (1.002-1.030); Urine Urobilinogen Negative (Negative)
[2023-08-14 12:34] LABS: Urine Bacteria Absent (Absent); Urine Red Blood Cell Absent (Absent); Urine Squamous Epithelial Cell Present (Absent); Urine White Blood Cell 3+(>20/hpf) (Absent)
[2023-08-14 12:46] LABS: Calcium 10.7 mg/dL (8.6-10.3); Creatinine, Serum 1.96 mg/dL (0.51-0.95); Potassium 5.3 mmol/L (3.5-5.0); eGFR CKD-EPI 24.8 (>60)
[2023-08-14 13:28] LABS: Potassium Redraw 4.9 mmol/L (3.5-5.0)
[2023-08-14 14:22] LABS: Rapid COVID-19 Molecular Undetected (Undetected)
[2023-08-14 14:37] LABS: Influenza A Molecular Negative (Negative); Influenza B Molecular Negative (Negative)
[2023-08-14] MEDS ORDERED: Enoxaparin 30 MG/0.3 ML SYR SUBCUT SCH (16:00)
[2023-08-14] MEDS ORDERED: Enoxaparin 60 MG/0.6 ML SYR SUBCUT ONE (20:00)
[2023-08-14] MEDS ORDERED: Senna TAB 8.6 mg TAB PO PRN (20:06)
[2023-08-14] MEDS ORDERED: Polyethylene Glycol 3350 17 GM PACKET PO PRN (20:06)
[2023-08-14] MEDS: Lactulose 30 ml UDC PO SCH (20:28)
[2023-08-14] MEDS: Latanoprost 0.005% 2.5 ml BTL BOTH EYES SCH (20:29)
[2023-08-14 23:26] LABS: Calcium 9.4 mg/dL (8.6-10.3); Creatinine, Serum 1.46 mg/dL (0.51-0.95); Potassium 3.8 mmol/L (3.5-5.0); eGFR CKD-EPI 35.3 (>60)
[2023-08-15 05:47] LABS: Hematocrit 40.3 % (35-45); Hemoglobin 13.3 g/dL (11.5-14.3); Mean Corpuscular Hemoglobin 30.8 pg (27-33); Mean Corpuscular Hgb Conc 32.9 g/dL (31-36); Mean Corpuscular Volume 93.8 fL (80-97); Mean Platelet Volume 9.3 fL (7.5-11.2); Platelet Count 206 10^3/uL (150-450); Red Cell Distribution Width 16.1 % (12-17); White Blood Count 10.5 10^3/uL (3.8-11.8)
[2023-08-15 06:02] LABS: ABS Basophils 0.1 10^3/uL (0.0-0.1); ABS Eosinophils 0.3 10^3/uL (0.0-0.5); ABS Lymphocytes 1.9 10^3/uL (1.0-4.8); ABS Monocytes 0.8 10^3/uL (0.0-0.9); ABS Neutrophils 7.5 10^3/uL (1.5-7.6); ABS Nucleated RBC 0.01 10^3/ul; Eosinophil % 2.9 %; Lymphocyte % 17.7 %; Nucleated Red Blood Cells % 0.1 %/100WBC (0.0-0.8)
[2023-08-15 06:37] LABS: Calcium 9.1 mg/dL (8.6-10.3); Creatinine, Serum 1.21 mg/dL (0.51-0.95); Potassium 3.5 mmol/L (3.5-5.0); eGFR CKD-EPI 44.2 (>60)
[2023-08-15] MEDS: NS 0.9% 1000 ml BAG 1,000 ML IV SCH (06:51)
[2023-08-15 07:02] LABS: Magnesium 2.2 mg/dL (1.9-2.7)
[2023-08-15] MEDS: Lactulose 30 ml UDC PO SCH (10:06)
[2023-08-15] MEDS ORDERED: Polyethylene Glycol 3350 17 GM PACKET PO PRN (16:00)
[2023-08-15] MEDS ORDERED: Magnesium Hydroxide LIQ 30 ML UDC PO PRN (16:00)
[2023-08-15] MEDS ORDERED: Sodium Phosphate ADULT ENEMA 133 ML BTL PR ONE (16:01)
[2023-08-15] MEDS ORDERED: Enoxaparin 100 MG/ML SYR SUBCUT SCH ×2 (20:00→21:00)
[2023-08-15] MEDS: Magnesium Hydroxide LIQ 30 ML UDC PO SCH (21:13)
[2023-08-15] MEDS: Latanoprost 0.005% 2.5 ml BTL BOTH EYES SCH (21:15)
[2023-08-16 07:42] LABS: ABS Basophils 0.1 10^3/uL (0.0-0.1); ABS Eosinophils 0.3 10^3/uL (0.0-0.5); ABS Lymphocytes 1.6 10^3/uL (1.0-4.8); ABS Monocytes 0.7 10^3/uL (0.0-0.9); ABS Neutrophils 5.3 10^3/uL (1.5-7.6); ABS Nucleated RBC 0.01 10^3/ul; Eosinophil % 3.4 %; Hematocrit 38.8 % (35-45); Hemoglobin 12.9 g/dL (11.5-14.3); Lymphocyte % 19.7 %; Mean Corpuscular Hemoglobin 30.9 pg (27-33); Mean Corpuscular Hgb Conc 33.2 g/dL (31-36); Mean Corpuscular Volume 93.1 fL (80-97); Mean Platelet Volume 8.9 fL (7.5-11.2); Nucleated Red Blood Cells % 0.1 %/100WBC (0.0-0.8); Platelet Count 187 10^3/uL (150-450); Red Blood Count 4.17 10^6/uL (3.63-4.92); Red Cell Distribution Width 15.8 % (12-17)
[2023-08-16 07:57] LABS: Creatinine, Serum 1.26 mg/dL (0.51-0.95); Magnesium 2.3 mg/dL (1.9-2.7); Potassium 3.3 mmol/L (3.5-5.0); eGFR CKD-EPI 42.1 (>60)
[2023-08-16] MEDS: Magnesium Hydroxide LIQ 30 ML UDC PO SCH (09:47)
[2023-08-16 10:52] VITALS: BP 107/65
[2023-08-16] MEDS ORDERED: Potassium Chlor 20 meq TAB.ER PO ONE (11:13)
== END 2023-08-16 13:15 | DRG 683 ==
LOC: ED 05:45 → EDHOLD 05:45 → SUATTDRO 13:32 → MED 15:00
PROVIDERS: ADMIT Student in an Organized Health Care Education/Training Program; ATTEND Family Medicine